=== PATIENT | female | born 1960 | race Caucasian/White ===

== ENCOUNTER 2023-09-17 17:35 | Inpatient (IN) | payer MEDICARE, SELFPAY ==
[2023-09-17] VITALS (8 sets, daily range): BP systolic 106–153; BP diastolic 34–107; PULSE 83–110; RESP 16–26; TEMP 36.3–37.4; O2SAT 91–100; BMI 36.4; BMI 32.6
--- NOTE | 2023-09-17 18:02 | EX.ED.DYSGE1 ---
HPI History of Present Illness Chief Complaint: Abscess Narrative Narrative: 62-year-old female presenting with cellulitis of the left foot. 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 She states that she does see her wound care doctor and recently saw him but not since this is worsened. She notes that the skin is broken down more on the bottom of her foot and the lateral aspect of her foot and her foot is more edematous, erythematous, warm. Her has been doing dressing changes. No systemic signs or symptoms. No fevers or chills. Patient admits to history of diabetes, hypertension, hyperlipidemia, peripheral neuropathy. [facility] Medical History Diabetes Hypercholesteremia Hypertension Neuropathy Home Medications aspirin 81 mg tablet,delayed release 81 mg PO DAILY HEART HEALTH 09/17/23 [History Last Taken 09/16/23] atorvastatin 40 mg tablet 40 mg PO DAILY CHOLESTEROL 09/17/23 [History Last Taken 09/16/23] bupropion HCl 150 mg 24 hr tablet, extended release 150 mg PO DAILY DEPRESSION 09/17/23 [History Last Taken 09/16/23] fluticasone propionate 110 mcg/actuation HFA aerosol inhaler 1 puff inhalation BID ASTHMA 09/17/23 [History Last Taken 09/16/23] gabapentin 600 mg tablet 600 mg PO BID NEUROPATHY 09/17/23 [History Last Taken 09/16/23] losartan 100 mg tablet 100 mg PO DAILY BLOOD PRESSURE 09/17/23 [History Last Taken 09/16/23] metformin 500 mg tablet,extended release 24 hr 500 mg PO BIDCM DIABETES 09/17/23 [History Last Taken 09/16/23] metoprolol tartrate 75 mg tablet 75 mg PO BID BLOOD PRESSURE 09/17/23 [History Last Taken 09/16/23] oxybutynin chloride 5 mg tablet 5 mg PO DAILY OVERACTIVE BLADDER 09/17/23 [History Last Taken 09/16/23] venlafaxine 75 mg tablet 75 mg PO BREAKFAST DEPRESSION 09/17/23 [History Last Taken 09/16/23] venlafaxine 75 mg tablet 150 mg PO QPM DEPRESSION 09/17/23 [History Last Taken 09/16/23] Allergy/AdvReac Type Severity Reaction Status Date / Time No Known Allergies Allergy Verified 09/17/23 17:38 Social History Smoking Status: Current every day smoker tobacco type: cigarettes ROS ROS ED Constitutional Constitutional ED: Denies chills, fever(s) or sweats Eyes Eyes: Denies blurry vision or change in vision ENT ENT ED: Denies ear pain or sore throat Cardiovascular Cardiovascular: Denies chest pain, palpitations or racing heartbeat Respiratory/Chest Respiratory/Chest: Denies cough, dyspnea or sputum Gastrointestinal Gastrointestinal: Denies abdominal pain, constipation, diarrhea, nausea or vomiting Genitourinary Genitourinary ED: Denies dysuria, hematuria or urinary frequency Musculoskeletal Musculoskeletal: Denies arthralgias, myalgias or neck pain Integumentary Reports abscess, Abrasions and rash Neurologic Neurologic: Denies headache(s), paresthesias or weakness Psychiatric Psychiatric: Denies anxiety, depression, suicidal ideation or suicidal thoughts Endocrine Endocrinology: Denies polydipsia or polyuria EXAM Physical Exam Const Vital Signs: 09/17/23 17:36 09/17/23 17:57 09/17/23 18:56 Temperature 97.4 F L 98.6 F 98.7 F Temperature Source Temporal Oral Oral Pulse Rate 110 H 100 96 Respiratory Rate 20 H 22 H 19 H Blood Pressure 153/61 H 129/59 H 120/107 H Blood Pressure Mean 91 82 111 Pulse Ox 100 96 91 Oxygen Delivery Method Room Air Room Air Room Air 09/17/23 19:10 Temperature 99.4 F H Temperature Source Oral Pulse Rate 95 Respiratory Rate 26 H Blood Pressure 133/64 H Blood Pressure Mean 87 Pulse Ox 94 Oxygen Delivery Method Room Air Positive well nourished General Appearance ED: NAD HEENT Reports moist mucous membranes Resp normal respiratory effort and clear to auscultation bilaterally Cardio regular rate and regular rhythm GI normal to inspection, nondistended, normoactive bowel sounds Neuro oriented x3 and CN's II-XII intact bilaterally Psych mental status grossly normal Skin Skin Narrative: Left foot shows diffuse edema and erythema of the forefoot. There is a large area of ulceration on the lateral aspect of the left foot which shows necrosis and a serrated tissue with drainage and foul odor. There is also an ulceration on the plantar aspect of the foot which shows similar necrosis and foul odor with drainage. MDM MDM MDM Narrative Medical decision making narrative: Patient presents with diabetic foot ulcer which shows necrosis and cellulitis surrounding. Initially CBC and BMP were obtained as well as ESR and CRP as well as foot x-ray. CBC showed a leukocytosis of 15.8. Hemoglobin 11.3. Platelets are 269. Creatinine is 1.33 with GFR 43 with no comparison. CRP is elevated 135 and ESR is 130. Given the patient has a chronic diabetic foot ulcer and elevated blood cell count with some mild tachycardia I did add a lactic acid, coagulation studies and blood cultures. Vancomycin and Zosyn were started. Patient given 2 L of IV fluids. I spoke with Dr. Hager who came to evaluate the patient and feel she is to need an amputation of her foot. Wound cultures were sent prior to antibiotics starting. INR returned at 1.3. Lactic acid slightly elevated at 2.3. Foot x-ray on my interpretation shows foreign body in the subcu tissue on the plantar surface of the foot and subcu emphysema. Discussed with hospitalist for admission. Impression: 1. Cellulitis left foot 2. Diabetic foot ulcer 3. History of diabetic neuropathy. 4. Hypokalemia Lab Data Attestation: I reviewed the patient's lab results. Labs: Laboratory Results - last 24 hr 09/17/23 09/17/23 18:25 19:16 WBC 15.8 H RBC 4.30 Hgb 11.3 L Hct 35.3 L MCV 82.1 MCH 26.3 L MCHC 32.0 RDW Std Deviation 53.8 H RDW Coeff of [place] 18.1 H Plt Count 269 MPV 9.8 Immature Gran % (Auto) 1.800 H Neut % (Auto) 83.7 H Lymph % (Auto) 9.9 L [place] % (Auto) 4.1 Eos % (Auto) 0.2 Baso % (Auto) 0.3 Absolute Neuts (auto) 13.2 H Absolute Lymphs (auto) 1.56 Nucleated RBC % 0 ESR > 130 H PT 15.9 H INR 1.3 Sodium 133 L Potassium 3.0 L Chloride 102 Carbon Dioxide 21.0 Anion Gap 10 BUN 23 H Creatinine 1.33 H Estim Creat Clear Calc 38.96 Est GFR (MDRD) Af Amer 52 L Est GFR (MDRD) Non-Af 43 L BUN/Creatinine Ratio 17.3 Glucose 232 H Lactic Acid 2.3 H* Calcium 8.7 C-React Prot Ext Range 135.00 H Radiography Diagnostic Testing: Clinical Impression(s) from Imaging Studies Foot X-Ray 09/17/23 19:32 IMPRESSION: Soft tissue swelling with subcutaneous emphysema. There is a plantar wound. Curvilinear foreign bodies as noted. Electronically Signed: Serafin Hernandez DO at 20:22 EST Reading Location ID and State: [facility] / [place] Tel [phone], Service support , Discharge Plan Triage Chief Complaint: Abscess ED Provider: Chucho Romero Dx/Rx/DC Orders Primary Care Provider: Care Physician,No Primary
[2023-09-17 18:47] LABS: Absolute Lymphocyte Count 1.56 X10^3/uL (0.83-4.51); Absolute Neutrophil Count 13.2 X10^3/uL (2.0-7.7); Basophil# 0.05 X10^3/uL; Basophil% 0.3 % (0-1); Eosinophil# 0.03 X10^3/uL; Eosinophils% 0.2 % (0-5); Hematocrit 35.3 % (37-47); Hemoglobin 11.3 g/dL (12.0-15.0); Lymphocyte # 1.56 X10^3/ul (0.83-4.51); Lymphocyte % 9.9 % (19-41); Mean Corpuscular Hgb 26.3 pg (27.0-32.0); Mean Corpuscular Volume 82.1 fL (81-99); Mean Platelet Vol. 9.8 fl (6.2-12.0); Monocyte# 0.65 X10^3/uL; Monocyte% 4.1 % (0-10); NRBC Flagged by Analyzer 0 % (0-5); Neutrophil # 13.21 X10^3/uL (2.7-7.7); Neutrophil % 83.7 % (47-70); Platelet Count 269 K/mm3 (150-450); RBC Distribution Width CV 18.1 % (11.6-14.6); RBC Distribution Width SD 53.8 fl (35.1-43.9); White Blood Count 15.8 K/mm3 (4.4-11.0)
--- NOTE | 2023-09-17 18:50 | CON.PCM_ITS ---
Assessment & Plan Assessment/Plan (1) Diabetes mellitus with diabetic polyneuropathy: (2) Cellulitis of left foot: (3) Abscess of left foot: (4) Non-pressure chronic ulcer of other part of left foot with necrosis of bone: PLAN: Plan Patient seen and evaluated Infection: There is erythema of the dorsal forefoot, especially laterally extending proximal to the ankle joint. There is purplish discoloration of the fifth digit and base of the fourth digit with digits cold to palpation. There is a noted ulceration to the plantar aspect of the first metatarsal head, lateral fifth metatarsal, and plantar midfoot extending to the level of the navicular bone. Lateral ulceration demonstrates periwound maceration with necrotic eschar and purulent drainage with foul odor. This ulceration communicates along the plantar aspect of the foot to the plantar ulceration. Lateral and plantar ulceration probe directly to bone. Plantar foot demonstrates erythema extending proximally to the heel. Plantar ulceration demonstrates periwound maceration with significant tissue destruction/necrotic tissue with foul-smelling dark and purulent drainage. WBC 15.8 with left shift, CRP 135, ESR > 130, sodium 133, BUN 23, creatinine 1.33, glucose 232, PT 15.9 Patient currently on IV Vanco/Zosyn Imaging: Radiograph obtained of the left foot demonstrating diffuse swelling of the foot with soft tissue defect consistent with plantar wound to the first metatarsal head, soft tissue defect lateral to the fifth metatarsal communicating plantarly below fourth, third, second metatarsal extending proximally to the level of the navicular with soft tissue emphysema noted about the lateral fifth metatarsal extending medially to the fourth metatarsal. There is evidence of foreign body noted to the left foot plantar to the fourth and fifth metatarsal shafts appear to be consistent with metal wire. Recommending MRI for further assessment for likely osteomyelitis I did discuss with her university administrator Emily VillavicencioPSylvia. who states he had been patient for wound care and was close to healing her plantar first metatarsal ulceration however patient was lost to follow-up prior to final resolution of healing. He did state multiple attempts to contact patient for return to wound care however patient did not return stating she had healed. I discussed with patient the nature of her infection and high probability of underlying osteomyelitis. I discussed transmetatarsal versus Lisfranc amputation however I did discuss with patient the extent of tissue damage to the plantar foot in addition to depth of her ulcerative sites complicates sufficient skin coverage for flap closure and despite surgical intervention would likely leave behind exposed bone with inability for VAC closure. I discussed with patient that she is likely to undergo a below the knee amputation of the left lower extremity. Patient voices understanding of this. Medicine team currently following for medical management, they are greatly appreciated. Wound care nurse assisting in dressing changes, her assistance is appreciated. Vascular surgery to be consulted for possible BKA of left lower extremity Podiatry will continue to follow while in house. Doug Hager Jr. D.P.M. [facility] [phone] HPI Consult Data Date of Consult: 09/18/23 HPI Narrative Reason for Consultation: Left foot infection HPI Narrative: MARY BETH CARDONA, is a 62 F who presents to [facility] ED with left foot infection. She has PMHx of diabetes type 2 with peripheral polyneuropathy, HTN, HLD, obesity. Patient states that she had been following with Dr. Danis D.P.M. in [place] for wound care but has not seen him for a few days. Patient states the reason she had not seen him was because she was prior healed however she did breakdown ulcer sites to the plantar first metatarsal head, plantar midfoot, and lateral fifth metatarsal. Patient states she was just performing dressing changes with gauze daily however drainage was more progressive with more redness spreading with further development of foul odor over the last week. She reports she has not seen a foot doctor for regular checkups other than her wound care university administrator. She denies outpatient oral antibiotic use. She denies F/V/N/chills. She states she has presented to the ER to receive IV antibiotics for her left foot infection. She did receive Vanco/Zosyn while in ED. She was consulted to podiatry for left foot infection with multiple ulcerations and suspected osteomyelitis. PFSH Medical History Cancer COPD (chronic obstructive pulmonary disease) CPAP (continuous positive airway pressure) dependence Depression Diabetes History of stress test Hoarseness Hypercholesteremia Hypertension Hypothyroidism Migraines Neuropathy Post-menopausal Restless legs Sleep apnea Smoker Home Medications albuterol sulfate 90 mcg/actuation aerosol inhaler 2 puff inhalation Q4H PRN WHEEZING/SOB 09/17/23 [History Last Taken Unknown] aspirin 81 mg tablet,delayed release 81 mg PO DAILY HEART HEALTH 09/17/23 [History Last Taken 09/16/23] atorvastatin 40 mg tablet 40 mg PO DAILY CHOLESTEROL 09/17/23 [History Last Taken 09/16/23] bupropion HCl 150 mg 24 hr tablet, extended release 150 mg PO DAILY DEPRESSION 09/17/23 [History Last Taken 09/16/23] fluticasone propionate 110 mcg/actuation HFA aerosol inhaler 1 puff inhalation BID ASTHMA 09/17/23 [History Last Taken 09/16/23] gabapentin 600 mg tablet 600 mg PO BID NEUROPATHY 09/17/23 [History Last Taken 09/16/23] levothyroxine 50 mcg tablet (Synthroid) 50 mcg PO DAILY THYROID 09/17/23 [History Last Taken Unknown] losartan 100 mg tablet 100 mg PO DAILY BLOOD PRESSURE 09/17/23 [History Last Taken 09/16/23] metformin 500 mg tablet,extended release 24 hr 500 mg PO BIDCM DIABETES 09/17/23 [History Last Taken 09/16/23] metoprolol tartrate 75 mg tablet 75 mg PO BID BLOOD PRESSURE 09/17/23 [History Last Taken 09/16/23] oxybutynin chloride 5 mg tablet 5 mg PO DAILY OVERACTIVE BLADDER 09/17/23 [History Last Taken 09/16/23] venlafaxine 75 mg tablet 75 mg PO BREAKFAST DEPRESSION 09/17/23 [History Last Taken 09/16/23] venlafaxine 75 mg tablet 150 mg PO QPM DEPRESSION 09/17/23 [History Last Taken 09/16/23] Allergy/AdvReac Type Severity Reaction Status Date / Time No Known Allergies Allergy Verified 09/17/23 17:38 Social History Smoking Status: Current every day smoker tobacco type: cigarettes ROS Constitutional Constitutional: Denies chills, fatigue, fever(s) or weakness Eyes Eyes: Denies diplopia, erythema or eye pain ENT HEENT: Denies dysphagia, nasal congestion, nasal discharge or sore throat Cardiovascular Cardiovascular: Denies chest pain, claudication or palpitations Respiratory/Chest Respiratory/Chest: Denies cough, dyspnea or shortness of breath at rest Gastrointestinal Gastrointestinal: Denies abdominal pain, constipation, diarrhea, hematochezia, nausea or vomiting Genitourinary Genitourinary: Denies dysuria, urinary frequency, urinary hesitancy, urinary incontinence or urinary urgency Musculoskeletal Musculoskeletal: Denies joint pain, joint stiffness or joint swelling Integumentary Integumentary: Denies lesions, pruritus or rash Neurologic Neurologic: Denies dizziness, numbness or seizures Psychiatric Psychiatric: Denies anxiety Endocrine Endocrinology: Denies cold intolerance, heat intolerance or polydipsia Hematologic/Lymphatic Hematologic/Lymphatic: Denies easy bleeding or easy bruising Allergic/Immunologic Allergic/Immunologic: Denies wheezing Physical Exam Const alert, oriented x3 and no apparent distress Constitutional Narrative: Nontoxic-appearing. General Appearance: cooperative HEENT normocephalic Eyes General Eye: normal appearance of both eyes Neck General: normal visual inspection Lymph Lymphatic: no lymphadenopathy noted and no lymphedema noted Resp normal respiratory effort Cardio regular rate and regular rhythm Extremity Extremity Narrative: DP and PT pulses weakly palpable to the left lower extremity. There is delayed capillary fill time to digits 1 through 4 of the left foot. Digit 5 demonstrates absence of capillary fill and is cold to palpation. Neuro: Decreased protective sensation to the foot at greater than 2 sites consistent with diabetic peripheral polyneuropathy. Dermatological: There is erythema of the dorsal forefoot, especially laterally extending proximal to the ankle joint. There is purplish discoloration of the fifth digit and base of the fourth digit with digits cold to palpation. There is a noted ulceration to the plantar aspect of the first metatarsal head, lateral fifth metatarsal, and plantar midfoot extending to the level of the navicular bone. Lateral ulceration demonstrates periwound maceration with necrotic eschar and purulent drainage with foul odor. This ulceration communicates along the plantar aspect of the foot to the plantar ulceration. Lateral and plantar ulceration probe directly to bone. Plantar foot demonstrates erythema extending proximally to the heel. Plantar ulceration demonstrates periwound maceration with significant tissue destruction/necrotic tissue with foul-smelling dark and purulent drainage. Musculoskeletal: Muscle strength 5 of 5 age-appropriate. No pain to palpation about left foot ulcerative sites or dorsal foot Consistent with diabetic peripheral polyneuropathy. Skin no rashes or lesions noted and no jaundice Neuro moves all extremities Lab / Micro Data 09/18/23 06:40 09/18/23 06:40 Labs: Laboratory Results - last 24 hr 09/17/23 18:25: WBC 15.8 H, RBC 4.30, Hgb 11.3 L, Hct 35.3 L, MCV 82.1, MCH 26.3 L, MCHC 32.0, RDW Std Deviation 53.8 H, RDW Coeff of [place] 18.1 H, Plt Count 269, MPV 9.8, Immature Gran % (Auto) 1.800 H, Neut % (Auto) 83.7 H, Lymph % (Auto) 9.9 L, [place] % (Auto) 4.1, Eos % (Auto) 0.2, Baso % (Auto) 0.3, Absolute Neuts (auto) 13.2 H, Absolute Lymphs (auto) 1.56, Nucleated RBC % 0
--- NOTE | 2023-09-17 18:54 | ED.RN ---
PER DR. CELESTIN VERBAL ORDER, BLOOD CULTURES NEEDED PRIOR TO STARTING ANTIBIOTICS.
[2023-09-17 18:55] LABS: Anion Gap 10 (5-15); BUN 23 mg/dL (7-18); BUN/Creat Ratio 17.3 RATIO (10-20); Calcium,Total 8.7 mg/dL (8.5-10.1); Chloride 102 mmol/L (98-107); Creatinine, Serum 1.33 mg/dL (0.55-1.02); EST Glomerular Filtration Rate 43 mL/min (>60); Est Glom Filt Rate - Afr Amer 52 mL/min (>60); Estimated Creatinine Clearance 38.96 ml/min; Glucose 232 mg/dL (74-106); Sodium Level 133 mmol/L (136-145)
[2023-09-17 19:02] LABS: Erythrocyte Sedimentation Rate > 130 mm/hr (0-30)
[2023-09-17] MEDS: 0.9% Normal Saline (1000mL) 1,000 ML 1000 ML IV (19:19)
[2023-09-17] MEDS: Piperacil/Tazobactam 3.375 GM in 0.9% Normal Saline (50mL MB+) 50 ML IV (19:24)
[2023-09-17] MEDS: Potassium Chloride Oral Tablet 20 MEQ 40 MEQ PO (19:24)
[2023-09-17] MEDS: 0.9% Normal Saline (1000mL) 1,000 ML 999 ML IV (19:28)
[2023-09-17 19:32] LABS: International Normalized Ratio 1.3; Prothrombin Time (Protime)PT. 15.9 SECONDS (11.7-14.9)
--- NOTE | 2023-09-17 19:32 | RAD_ITS ---
INDICATION: Left foot infection EXAMINATION/TECHNIQUE: X-RAY - LEFT XR Foot 3 VIEWS COMPARISON: FINDINGS: SOFT TISSUES: There is soft tissue swelling and subcutaneous emphysema with a plantar wound. There is a curvilinear radiopaque foreign body within the plantar subcutaneous soft tissues between the fourth and fifth metatarsal bones. In a curvilinear radiopaque foreign body is noted within the plantar soft tissue at the heel. BONES/JOINTS: No acute fracture or subluxation.. Normal alignment. Preservation of the joint space.. No sclerotic or destructive changes observed. RAD/Foot min 3 Views IMPRESSION: Soft tissue swelling with subcutaneous emphysema. There is a plantar wound. Curvilinear foreign bodies as noted. Electronically Signed: Serafin Hernandez DO at 20:22 EST Reading Location ID and State: [facility] / [place] Tel [phone], Service support ,
--- NOTE | 2023-09-17 19:49 | PCM.HP.STD ---
[facility] - General General Date of Admission: 09/17/23 Date of Service: 09/17/23 Chief Complaint: Left foot redness, swelling and discoloration. HPI Narrative MARY BETH DUVALL, is a 62 F with a past medical history of essential hypertension, hyperlipidemia, tobacco abuse, obesity with BMI of 36.4 this admission, depression, ongoing tobacco abuse, positive family history of peripheral vascular disease in her mother who was underwent previous left lower extremity amputation, diabetes mellitus type 2 uncontrolled with hyperglycemia, diabetic polyneuropathy, history of diabetic foot ulcer of the Left foot followed by Dr. Danis Palacio In [place] and history of medical noncompliance who presents to [facility] ER complaining of left foot redness swelling and discoloration. Mrs. Duvall reports her symptoms began approximately 1 week prior to admission with the development of redness swelling and a very foul odor over that time period. She admits she has not seen her certified nurse midwife recently because her previous diabetic foot ulcers at the plantar first metatarsal head plantar midfoot and lateral fifth metatarsal head previously healed. She reports she was doing dressing changes with gauze daily but her symptoms worsened in spite of her 's best efforts trying to care for her. She denies outpatient oral antibiotic use. She also denies fever chills nausea vomiting diarrhea or constipation. In the ER she was diagnosed with cellulitis of the Left foot with abscess formation complicated by a non-pressure chronic ulcer of the left foot with necrosis to the bone and clinical evidence of dry gangrene with foul smelling dark and purulent drainage with leukocytosis of 15.8 present on admission and hypokalemia of 3 mmol/L present on admission. Dr. Hager of the podiatry service evaluated the patient in the ER and plans for left foot amputation in the a.m. with consult greatly appreciated. She was then admitted to the general medical floor for ongoing care for status expected to be greater than 48 hours. PFSH Medical History Cancer COPD (chronic obstructive pulmonary disease) CPAP (continuous positive airway pressure) dependence Depression Diabetes History of stress test Hoarseness Hypercholesteremia Hypertension Hypothyroidism Migraines Neuropathy Post-menopausal Restless legs Sleep apnea Smoker Home Medications albuterol sulfate 90 mcg/actuation aerosol inhaler 2 puff inhalation Q4H PRN WHEEZING/SOB 09/17/23 [History Last Taken Unknown] aspirin 81 mg tablet,delayed release 81 mg PO DAILY HEART HEALTH 09/17/23 [History Last Taken 09/16/23] atorvastatin 40 mg tablet 40 mg PO DAILY CHOLESTEROL 09/17/23 [History Last Taken 09/16/23] bupropion HCl 150 mg 24 hr tablet, extended release 150 mg PO DAILY DEPRESSION 09/17/23 [History Last Taken 09/16/23] fluticasone propionate 110 mcg/actuation HFA aerosol inhaler 1 puff inhalation BID ASTHMA 09/17/23 [History Last Taken 09/16/23] gabapentin 600 mg tablet 600 mg PO BID NEUROPATHY 09/17/23 [History Last Taken 09/16/23] levothyroxine 50 mcg tablet (Synthroid) 50 mcg PO DAILY THYROID 09/17/23 [History Last Taken Unknown] losartan 100 mg tablet 100 mg PO DAILY BLOOD PRESSURE 09/17/23 [History Last Taken 09/16/23] metformin 500 mg tablet,extended release 24 hr 500 mg PO BIDCM DIABETES 09/17/23 [History Last Taken 09/16/23] metoprolol tartrate 75 mg tablet 75 mg PO BID BLOOD PRESSURE 09/17/23 [History Last Taken 09/16/23] oxybutynin chloride 5 mg tablet 5 mg PO DAILY OVERACTIVE BLADDER 09/17/23 [History Last Taken 09/16/23] venlafaxine 75 mg tablet 75 mg PO BREAKFAST DEPRESSION 09/17/23 [History Last Taken 09/16/23] venlafaxine 75 mg tablet 150 mg PO QPM DEPRESSION 09/17/23 [History Last Taken 09/16/23] Allergy/AdvReac Type Severity Reaction Status Date / Time No Known Allergies Allergy Verified 09/17/23 17:38 Social History Smoking Status: Current every day smoker tobacco type: cigarettes ROS ROS Narrative Constitution: Patient appears to be her stated age with a flat, depressed affect. Review of Systems ROS Unobtainable: due to encephalopathy Vital Signs Vital Signs Vital Signs: 09/17/23 17:36 09/17/23 17:57 09/17/23 18:56 Temperature 97.4 F L 98.6 F 98.7 F Temperature Source Temporal Oral Oral Pulse Rate 110 H 100 96 Respiratory Rate 20 H 22 H 19 H Blood Pressure 153/61 H 129/59 H 120/107 H Blood Pressure Mean 91 82 111 Pulse Ox 100 96 91 Oxygen Delivery Method Room Air Room Air Room Air 09/17/23 19:10 Temperature 99.4 F H Temperature Source Oral Pulse Rate 95 Respiratory Rate 26 H Blood Pressure 133/64 H Blood Pressure Mean 87 Pulse Ox 94 Oxygen Delivery Method Room Air Weight Weight: 218 lb 14.704 oz Body Mass Index (BMI) 36.4 Physical Exam Narrative Patient appears her stated age with a flat, depressed affect. Const alert, oriented x3 and no apparent distress General Appearance: cooperative HEENT normocephalic, head/scalp atraumatic, hearing grossly normal bilaterally and moist oral mucous membranes Eyes PERRL, EOMs intact bilaterally and conjunctivae normal Neck no lymphadenopathy Resp normal respiratory effort, no retractions and no use of accessory muscles Cardio regular rate, regular rhythm, S1 normal heart sound and S2 normal heart sound GI normal to inspection, nondistended, normoactive bowel sounds, soft to palpation, non-tender and non-distended Extremity Extremity Narrative: Patient's left foot is edematous and erythematous with approximately 4 cm black eschar over the plantar aspect of her Left midfoot with surrounding abscess and cellulitis. Patient is neuropathic with little pain sensation. The drainage from her foot is dark and extremely foul-smelling. Skin Skin Narrative: Patient's left foot is edematous and erythematous with approximately 4 cm black eschar over the plantar aspect of her Left midfoot with surrounding abscess and cellulitis. The drainage from her foot is dark and extremely foul-smelling. Neuro oriented x3, CN's II-XII intact bilaterally, moves all extremities and no focal motor deficits Sensorium / Orientation: awake, alert, oriented to person, oriented to place and oriented to time Speech: speech normal Psych Psych Narrative: Patient has a flat, depressed affect. Mood & Affect: depressed Results Medical Records Data Attestation: I reviewed the patient's medical records Lab / Micro Data Attestation: I reviewed the patient's lab results. 09/18/23 06:40 09/17/23 18:25 Labs: Laboratory Results - last 24 hr 09/17/23 18:25: WBC 15.8 H, RBC 4.30, Hgb 11.3 L, Hct 35.3 L, MCV 82.1, MCH 26.3 L, MCHC 32.0, RDW Std Deviation 53.8 H, RDW Coeff of Cony 18.1 H, Plt Count 269, MPV 9.8, Immature Gran % (Auto) 1.800 H, Neut % (Auto) 83.7 H, Lymph % (Auto) 9.9 L, [place] % (Auto) 4.1, Eos % (Auto) 0.2, Baso % (Auto) 0.3, Absolute Neuts (auto) 13.2 H, Absolute Lymphs (auto) 1.56, Nucleated RBC % 0, ESR > 130 H, Sodium 133 L, Potassium 3.0 L, Chloride 102, Carbon Dioxide 21.0, Anion Gap 10, BUN 23 H, Creatinine 1.33 H, Estim Creat Clear Calc 38.96, Est GFR (MDRD) Af Amer 52 L, Est GFR (MDRD) Non-Af 43 L, BUN/Creatinine Ratio 17.3, Glucose 232 H, Calcium 8.7, C-React Prot Ext Range 135.00 H 09/17/23 19:16: PT 15.9 H, INR 1.3 Assessment & Plan Assessment/Plan (1) Non-pressure chronic ulcer of other part of left foot with necrosis of bone: (2) Abscess of left foot: (3) Cellulitis of left foot: (4) Diabetes mellitus with diabetic polyneuropathy: PLAN: Plan 1. Severe diabetic foot ulcer of the Left foot with surrounding cellulitis and non-pressure ulcer of the left foot with necrosis to the bone with clinical evidence of dry gangrene and a suspected foreign body at the base of her fifth metatarsal - Admit to general medical floor. Continue IV Zosyn and IV vancomycin for broad-spectrum coverage of nosocomial pathogens begun in the ER. Give Tylenol as needed for fever or pain. Finally, Dr. Hager's podiatry consultation is greatly appreciated with consultations also pending for infectious disease and vascular surgery in anticipation of the impending left below the knee amputation. 2. Diabetes mellitus type 2 uncontrolled with hyperglycemia, diabetic polyneuropathy and medical noncompliance precipitating #1 - ADA diet after surgery. FSBS q. AC HS plus SSI. Check HgbA1c. 3. Ongoing tobacco abuse adding to the pathology of #1 and #2 - Tobacco cessation will be strongly encouraged with nicotine patch offered to control cravings. 4. Positive family history of peripheral vascular disease in her mother who underwent a left lower extremity amputation as well - Noted. 5. Essential hypertension - Continue home medications as previous. Give IV hydralazine as needed for systolic blood pressure greater than 160 mmHg. 6. Hyperlipidemia - Continue statin as previous. 7. DVT prophylaxis -Lovenox 40 mg subcu daily. Total time: Proximately 55 minutes. Charges/Coding Visit Charges Inpatient E&M: 73409 Init Hosp L2
[2023-09-17 20:09] LABS: Lactic Acid 2.3 mmol/L (0.4-1.9)
[2023-09-17] MEDS: Vancomycin HCl 1,500 MG in 0.9% Normal Saline (500mL Bag) 500 ML 250 MG IV (20:39)
[2023-09-17] MEDS: Morphine 4 MG/ML Syringe IV (20:46)
[2023-09-17] MEDS: Gabapentin 600 MG Tablet PO (22:36)
[2023-09-17] MEDS: Metoprolol Tartrate 25 MG Tablet 75 MG PO (22:36)
[2023-09-17] MEDS: Atorvastatin Calcium 40 MG Tablet PO (22:37)
[2023-09-17] MEDS: Glucerna Shake 120 ML LIQUID PO (22:41)
[2023-09-17] MEDS: Venlafaxine HCl 75 MG Tablet 150 MG PO (23:17)
[2023-09-17 23:21] LABS: Reflex Lactate? Y
--- NOTE | 2023-09-17 23:54 | PCM.RX.CS ---
Consult Antibiotic Management Pharmacy has been consulted to manage selected antiobiotic: Vancomycin Type of Intervention Type of Consult: New start Labs Labs: Sodium 133 mmol/L (136-145) L 09/17/23 18:25 Potassium 3.0 mmol/L (3.5-5.1) L 09/17/23 18:25 Chloride 102 mmol/L (98-107) 09/17/23 18:25 Carbon Dioxide 21.0 mmol/L (21.0-32.0) 09/17/23 18:25 Anion Gap 10 (5-15) 09/17/23 18:25 BUN 23 mg/dL (7-18) H 09/17/23 18:25 Creatinine 1.33 mg/dL (0.55-1.02) H 09/17/23 18:25 Est GFR (MDRD) Af Amer 52 mL/min (>60) L 09/17/23 18:25 Est GFR (MDRD) Non-Af 43 mL/min (>60) L 09/17/23 18:25 BUN/Creatinine Ratio 17.3 RATIO (10-20) 09/17/23 18:25 Glucose 232 mg/dL (74-106) H 09/17/23 18:25 Dosing Weight Weight used for dosin.8 kg Estimated Creatinine Clearance Estimated Creatinine Clearance: 67 Goal Trough Goal Trough: 15-20 mcg/mL Pharmacy Plan for Drug Dosing Pharmacy Plan for Drug Dosing: Pharmacy Service will continue to monitor and adjust dosing as required. Follow-Up Labs Follow-Up Labs: Trough: Vancomycin Date/Time Labs Ordered Labs to be done on [date and time ordered]: 09/19 @ 0800
[2023-09-18] VITALS (15 sets, daily range): BP systolic 103–143; BP diastolic 42–60; PULSE 72–82; RESP 16–24; TEMP 36.1–37.1; O2SAT 90–96; BMI 32.6
[2023-09-18 00:32] LABS: Lactic Acid 1.3 mmol/L (0.4-1.9)
--- NOTE | 2023-09-18 05:00 | EKG12_ITS ---
Test Reason : PRE-OP Blood Pressure : / mmHG Vent. Rate : 072 BPM Atrial Rate : 072 BPM P-R Int : 136 ms QRS Dur : 082 ms QT Int : 398 ms P-R-T Axes : 060 039 -18 degrees QTc Int : 435 ms Normal sinus rhythm Normal ECG No previous ECGs available Confirmed by LINDA MARTÍNEZ, NANCY ([id number]), newspaper editor managing WALESKA HARTMAN ([id number]) on 09/23/2023 11:05:51 AM Referred By: [place] Confirmed By:JOYCELYN MCKEON MD
[2023-09-18] MEDS: Piperacil/Tazobactam 3.375 GM in 0.9% Normal Saline (50mL MB+) 50 ML IV ×3 (05:28→22:24)
[2023-09-18 06:34] LABS: Bedside Glucose 114 mg/dL (74-106)
[2023-09-18] MEDS: Budesonide Respules 0.5 MG/2 ML AMPUL.NEB. INHALATION ×2 (07:01→19:35)
[2023-09-18 07:19] LABS: Absolute Lymphocyte Count 1.84 X10^3/uL (0.83-4.51); Absolute Neutrophil Count 10.9 X10^3/uL (2.0-7.7); Basophil# 0.04 X10^3/uL; Basophil% 0.3 % (0-1); Eosinophil# 0.08 X10^3/uL; Eosinophils% 0.6 % (0-5); Hematocrit 34.2 % (37-47); Hemoglobin 10.5 g/dL (12.0-15.0); Lymphocyte # 1.84 X10^3/ul (0.83-4.51); Lymphocyte % 13.5 % (19-41); Mean Corp Hgb Conc 30.7 g/dL (32-36); Mean Corpuscular Hgb 25.9 pg (27.0-32.0); Mean Corpuscular Volume 84.4 fL (81-99); Monocyte# 0.57 X10^3/uL; Monocyte% 4.2 % (0-10); NRBC Flagged by Analyzer 0 % (0-5); Neutrophil # 10.87 X10^3/uL (2.7-7.7); Neutrophil % 79.8 % (47-70); Platelet Count 274 K/mm3 (150-450); RBC Distribution Width CV 18.2 % (11.6-14.6); Red Blood Count 4.05 M/mm3 (4.2-5.4); White Blood Count 13.6 K/mm3 (4.4-11.0)
--- NOTE | 2023-09-18 07:27 | PN.HOSP_ITS ---
Subjective Subjective No new events. Had been informed about need for BKA. Objective Data Objective Data Vital Signs: Vital Signs Temp Pulse Resp BP Pulse Ox O2 Del Method 36.7 C 75 16 107/50 L 94 Room Air 09/18/23 04:00 09/18/23 07:05 09/18/23 07:05 09/18/23 04:00 09/18/23 04:00 09/18/23 04:00 Oxygen Delivery Method Room Air Weight: 98.8 kg Body Mass Index (BMI) 32.6 Intake & Output: Intake and Output for Last 24 Hours 09/16/23 09/17/23 09/18/23 23:59 23:59 23:59 Intake Total 2580 / 2580 Balance 2580 / 2580 Lab / Micro Data 09/18/23 06:40 09/18/23 06:40 Labs: Laboratory Results - last 24 hr 09/17/23 18:25: WBC 15.8 H, RBC 4.30, Hgb 11.3 L, Hct 35.3 L, MCV 82.1, MCH 26.3 L, MCHC 32.0, RDW Std Deviation 53.8 H, RDW Coeff of Cony 18.1 H, Plt Count 269, MPV 9.8, Immature Gran % (Auto) 1.800 H, Neut % (Auto) 83.7 H, Lymph % (Auto) 9.9 L, [place] % (Auto) 4.1, Eos % (Auto) 0.2, Baso % (Auto) 0.3, Absolute Neuts (auto) 13.2 H, Absolute Lymphs (auto) 1.56, Nucleated RBC % 0, ESR > 130 H, Sodium 133 L, Potassium 3.0 L, Chloride 102, Carbon Dioxide 21.0, Anion Gap 10, BUN 23 H, Creatinine 1.33 H, Estim Creat Clear Calc 38.96, Est GFR (MDRD) Af Amer 52 L, Est GFR (MDRD) Non-Af 43 L, BUN/Creatinine Ratio 17.3, Glucose 232 H, Calcium 8.7, C-React Prot Ext Range 135.00 H 09/17/23 19:16: PT 15.9 H, INR 1.3, Lactic Acid 2.3 H* 09/17/23 23:59: Lactic Acid 1.3 09/18/23 06:12: POC Glucose 114 H 09/18/23 06:40: WBC 13.6 H, RBC 4.05 L, Hgb 10.5 L, Hct 34.2 L, MCV 84.4, MCH 25.9 L, MCHC 30.7 L, RDW Std Deviation 56.0 H, RDW Coeff of Cony 18.2 H, Plt Count 274, MPV 10.0, Immature Gran % (Auto) 1.600 H, Neut % (Auto) 79.8 H, Lymph % (Auto) 13.5 L, [place] % (Auto) 4.2, Eos % (Auto) 0.6, Baso % (Auto) 0.3, Absolute Neuts (auto) 10.9 H, Absolute Lymphs (auto) 1.84, Nucleated RBC % 0 Radiography Diagnostic Testing: Radiology Impression Foot X-Ray 09/17/23 19:32 IMPRESSION: Soft tissue swelling with subcutaneous emphysema. There is a plantar wound. Curvilinear foreign bodies as noted. Electronically Signed: Serafin Hernandez DO at 20:22 EST Reading Location ID and State: [facility] / [place] Tel [phone], Service support , Physical Exam Const alert and no apparent distress HEENT head/scalp atraumatic and moist oral mucous membranes Resp normal respiratory effort, no retractions, no use of accessory muscles and clear to auscultation bilaterally Cardio regular rate, regular rhythm, S1 normal heart sound and S2 normal heart sound GI normal to inspection, nondistended, normoactive bowel sounds, soft to palpation, non-tender and non-distended Extremity normal to inspection Extremity Narrative: left foot wrapped. malodorous. Assessment & Plan Assessment/Plan (1) Non-pressure chronic ulcer of other part of left foot with necrosis of bone: PLAN: Severe diabetic foot wound with SQ emphysema. Ulceration from head of 1st MTP, lateral 5th metatarsal and plantar midfoot to the level of the navicular bone. Plantar tissue profoundly compromised. Not amenable to partial amputation given high risk for failure, therefore BKA is planned. ESR >130, CRP 135. MRI ordered. Check JADE Consults to podiatry, ID and vascular surgery. Abx with vancomycin and pip/tazo. Plan for left BKA today. (2) Diabetes mellitus with diabetic polyneuropathy: PLAN: uncontrolled a1c pending Currently on SSI PLAN: Plan Chronic conditions: * Ongoing tobacco abuse adding to the pathology of #1 and #2 - Tobacco cessation will be strongly encouraged with nicotine patch offered to control cravings. * Positive family history of peripheral vascular disease in her mother who underwent a left lower extremity amputation as well - Noted. * Essential hypertension - Continue home medications as previous. Give IV hydralazine as needed for systolic blood pressure greater than 160 mmHg. * Hyperlipidemia - Continue statin as previous. DVT prophylaxis -Lovenox 40 mg subcu daily. Disposition: TBD. Patient may require SNF post-operatively. DW patient's at bedside. Charges/Coding Visit Charges Inpatient E&M: 43075 Subs Hosp L2
[2023-09-18 07:48] LABS: Anion Gap 4 (5-15); BUN 19 mg/dL (7-18); BUN/Creat Ratio 18.6 RATIO (10-20); Calcium,Total 8.2 mg/dL (8.5-10.1); Chloride 111 mmol/L (98-107); Creatinine, Serum 1.02 mg/dL (0.55-1.02); EST Glomerular Filtration Rate 58 mL/min (>60); Est Glom Filt Rate - Afr Amer 70 mL/min (>60); Estimated Creatinine Clearance 56.95 ml/min; Glucose 115 mg/dL (74-106); Potassium 3.3 mmol/L (3.5-5.1); Sodium Level 136 mmol/L (136-145); Thyroid Stim Hormone (TSH) 2.05 uIU/mL (0.358-3.74)
--- NOTE | 2023-09-18 08:04 | PCM.PROGNOTE ---
Subjective Subjective Patient seen resting in bed early this a.m. She denies pain to the left foot. Patient understands that she is likely to require a below the knee amputation per our discussion last night. Denies constitutional symptoms. Denies further complaints. Objective Data Objective Data Vital Signs: Vital Signs Temp Pulse Resp BP Pulse Ox O2 Del Method 98.1 F 75 16 107/50 L 94 Room Air 09/18/23 04:00 09/18/23 07:05 09/18/23 07:05 09/18/23 04:00 09/18/23 04:00 09/18/23 04:00 Oxygen Delivery Method Room Air Weight: 98.8 kg Body Mass Index (BMI) 32.6 Intake & Output: Intake and Output for Last 24 Hours 09/16/23 09/17/23 09/18/23 23:59 23:59 23:59 Intake Total 2580 / 2580 Balance 2580 / 2580 Lab / Micro Data 09/18/23 06:40 09/18/23 06:40 Labs: Laboratory Results - last 24 hr 09/17/23 18:25: WBC 15.8 H, RBC 4.30, Hgb 11.3 L, Hct 35.3 L, MCV 82.1, MCH 26.3 L, MCHC 32.0, RDW Std Deviation 53.8 H, RDW Coeff of Cony 18.1 H, Plt Count 269, MPV 9.8, Immature Gran % (Auto) 1.800 H, Neut % (Auto) 83.7 H, Lymph % (Auto) 9.9 L, [place] % (Auto) 4.1, Eos % (Auto) 0.2, Baso % (Auto) 0.3, Absolute Neuts (auto) 13.2 H, Absolute Lymphs (auto) 1.56, Nucleated RBC % 0, ESR > 130 H, Sodium 133 L, Potassium 3.0 L, Chloride 102, Carbon Dioxide 21.0, Anion Gap 10, BUN 23 H, Creatinine 1.33 H, Estim Creat Clear Calc 38.96, Est GFR (MDRD) Af Amer 52 L, Est GFR (MDRD) Non-Af 43 L, BUN/Creatinine Ratio 17.3, Glucose 232 H, Calcium 8.7, C-React Prot Ext Range 135.00 H 09/17/23 19:16: PT 15.9 H, INR 1.3, Lactic Acid 2.3 H* 09/17/23 23:59: Lactic Acid 1.3 09/18/23 06:12: POC Glucose 114 H 09/18/23 06:40: WBC 13.6 H, RBC 4.05 L, Hgb 10.5 L, Hct 34.2 L, MCV 84.4, MCH 25.9 L, MCHC 30.7 L, RDW Std Deviation 56.0 H, RDW Coeff of Cony 18.2 H, Plt Count 274, MPV 10.0, Immature Gran % (Auto) 1.600 H, Neut % (Auto) 79.8 H, Lymph % (Auto) 13.5 L, [place] % (Auto) 4.2, Eos % (Auto) 0.6, Baso % (Auto) 0.3, Absolute Neuts (auto) 10.9 H, Absolute Lymphs (auto) 1.84, Nucleated RBC % 0, Sodium 136, Potassium 3.3 L, Chloride 111 H, Carbon Dioxide 21.0, Anion Gap 4 L, BUN 19 H, Creatinine 1.02, Estim Creat Clear Calc 56.95, Est GFR (MDRD) Af Amer 70, Est GFR (MDRD) Non-Af 58 L, BUN/Creatinine Ratio 18.6, Glucose 115 H, Calcium 8.2 L, TSH 2.05 Radiography Diagnostic Testing: Radiology Impression Foot X-Ray 09/17/23 19:32 IMPRESSION: Soft tissue swelling with subcutaneous emphysema. There is a plantar wound. Curvilinear foreign bodies as noted. Electronically Signed: Serafin Hernandez DO at 20:22 EST Reading Location ID and State: [facility] / [place] Tel [phone], Service support , Physical Exam Const alert, oriented x3 and no apparent distress Constitutional Narrative: Nontoxic-appearing. General Appearance: cooperative HEENT normocephalic Eyes General Eye: normal appearance of both eyes Neck General: normal visual inspection Lymph Lymphatic: no lymphadenopathy noted and no lymphedema noted Resp normal respiratory effort Cardio regular rate and regular rhythm Extremity Extremity Narrative: DP and PT pulses weakly palpable to the left lower extremity. There is delayed capillary fill time to digits 1 through 4 of the left foot. Digit 5 demonstrates absence of capillary fill and is cold to palpation. Neuro: Decreased protective sensation to the foot at greater than 2 sites consistent with diabetic peripheral polyneuropathy. Dermatological: There is erythema of the dorsal forefoot, especially laterally extending proximal to the ankle joint. There is purplish discoloration of the fifth digit and base of the fourth digit with digits cold to palpation. There is a noted ulceration to the plantar aspect of the first metatarsal head, lateral fifth metatarsal, and plantar midfoot extending to the level of the navicular bone. Lateral ulceration demonstrates periwound maceration with necrotic eschar and purulent drainage with foul odor. This ulceration communicates along the plantar aspect of the foot to the plantar ulceration. Lateral and plantar ulceration probe directly to bone. Plantar foot demonstrates erythema extending proximally to the heel. Plantar ulceration demonstrates periwound maceration with significant tissue destruction/necrotic tissue with foul-smelling dark and purulent drainage. Musculoskeletal: Muscle strength 5 of 5 age-appropriate. No pain to palpation about left foot ulcerative sites or dorsal foot Consistent with diabetic peripheral polyneuropathy. Skin no rashes or lesions noted and no jaundice Neuro moves all extremities Assessment & Plan Assessment/Plan (1) Diabetes mellitus with diabetic polyneuropathy: (2) Cellulitis of left foot: (3) Abscess of left foot: (4) Non-pressure chronic ulcer of other part of left foot with necrosis of bone: PLAN: Plan Patient seen and evaluated Infection: There is erythema of the dorsal forefoot, especially laterally extending proximal to the ankle joint. There is purplish discoloration of the fifth digit and base of the fourth digit with digits cold to palpation. There is a noted ulceration to the plantar aspect of the first metatarsal head, lateral fifth metatarsal, and plantar midfoot extending to the level of the navicular bone. Lateral ulceration demonstrates periwound maceration with necrotic eschar and purulent drainage with foul odor. This ulceration communicates along the plantar aspect of the foot to the plantar ulceration. Lateral and plantar ulceration probe directly to bone. Plantar foot demonstrates erythema extending proximally to the heel. Plantar ulceration demonstrates periwound maceration with significant tissue destruction/necrotic tissue with foul-smelling dark and purulent drainage. Overnight changes noted with worsening to ulcerative sites with more abscess formation and more erythema of the foot and ankle. WBC 13.6 down from 15.8 with left shift, CRP 135, ESR > 130, sodium 133, BUN 23, creatinine 1.33, glucose 115 down from 232, PT 15.9 Patient currently on IV Vanco/Zosyn Imaging: Radiograph obtained of the left foot demonstrating diffuse swelling of the foot with soft tissue defect consistent with plantar wound to the first metatarsal head, soft tissue defect lateral to the fifth metatarsal communicating plantarly below fourth, third, second metatarsal extending proximally to the level of the navicular with soft tissue emphysema noted about the lateral fifth metatarsal extending medially to the fourth metatarsal. There is evidence of foreign body noted to the left foot plantar to the fourth and fifth metatarsal shafts appear to be consistent with metal wire. Recommending MRI for further assessment for likely osteomyelitis I did discuss with her cork insulator helper Stephanie Villavicencio.P.Mitch. who states he had been patient for wound care and was close to healing her plantar first metatarsal ulceration however patient was lost to follow-up prior to final resolution of healing. He did state multiple attempts to contact patient for return to wound care however patient did not return stating she had healed. I discussed with patient the nature of her infection and high probability of underlying osteomyelitis. I discussed transmetatarsal versus Lisfranc amputation however I did discuss with patient the extent of tissue damage to the plantar foot in addition to depth of her ulcerative sites complicates sufficient skin coverage for flap closure and despite surgical intervention would likely leave behind exposed bone with inability for VAC closure. I discussed with patient that she is likely to undergo a below the knee amputation of the left lower extremity. Patient voices understanding of this. Ulcerative sites dressed with Dakin's and wet-to-dry dressing. Medicine team currently following for medical management, they are greatly appreciated. Wound care nurse assisting in dressing changes, her assistance is appreciated. Vascular surgery to be consulted for BKA of left lower extremity Patient has met with vascular surgery and does wish to proceed forward with BKA of the left lower extremity. Surgery anticipated today at 1:30 PM. Podiatry will see patient 1 more time following BKA and will sign off at that time. Doug Hager Jr. D.P.M. [facility] [phone]
[2023-09-18 08:23] LABS: Hemoglobin A1c 6.9 % (3.8-5.6)
--- NOTE | 2023-09-18 08:34 | WOUNDNOTE ---
wound photo: left lateral foot
--- NOTE | 2023-09-18 08:35 | WOUNDNOTE ---
wound photo: left foot
--- NOTE | 2023-09-18 08:50 | ART_ITS ---
Reason For Study: LLE Ulcer Procedure A bilateral lower extremity continuous wave Doppler with analog waveform analysis,segmental pressures,and ankle brachial indexes without exercise. Left Segmental Pressures Left thigh = 106mmHg. Left calf = 76mmHg. Left posterior tibial artery = 79mmHg. Left dorsalis pedis artery = 73mmHg. Left digit = 24 mmHg. The left posterior tibial artery waveforms are biphasic. The left dorsalis pedis waveforms are monophasic. Right Segmental Pressures Right brachial= 113mmHg. Right thigh = 92mmHg. Right calf = 82mmHg. Right posterior tibial artery = 77mmHg. Right dorsalis pedis artery = 74mmHg. Right digit = 52 mmHg. The right posterior tibial artery waveforms are biphasic. The right dorsalis pedis waveforms are biphasic. Indices The right ankle brachial index by the posterior tibial artery is 0.68. The right ankle brachial index by the dorsalis pedis is 0.65. The right digital-brachial index is 0.46. The left ankle brachial index by the posterior tibial artery is 0.70. The left ankle brachial index by the dorsalis pedis is 0.65. The left digital-brachial index is 0.21. VL/Lower Ext Art Exam w/o Exercis Interpretation Summary Right JADE 0.68,moderate arterial insufficiency. Doppler/PVR waveforms and segme ntal pressures reveal [id number] femoral disease. Left JADE 0.7, moderate arterial insufficiency. Doppler/PVR waveforms and segmen reyes pressures reveal mrydz-[id number] femoral, distal SFA/popliteal disease Ordering Physician: Carolyn Crespo Referring Physician: CAROLYN CRESPO PA Performed By: Thee Denny RVT
[2023-09-18] MEDS: Metoprolol Tartrate 25 MG Tablet 75 MG PO ×2 (08:59→21:33)
[2023-09-18] MEDS: Losartan Potassium 100 MG Tablet PO (09:01)
[2023-09-18] MEDS: Oxybutynin 5 MG Tablet PO (09:01)
[2023-09-18] MEDS: 0.9% Saline Lock 10 ML Syringe IV ×2 (09:03→15:47)
[2023-09-18] MEDS: Vancomycin HCl 1,250 MG in 0.9% Normal Saline (250mL Bag) 250 ML 167 MG IV ×2 (09:21→20:20)
--- NOTE | 2023-09-18 10:45 | CON.PCM.SX_ITS ---
Assessment & Plan Assessment/Plan (1) Non-pressure chronic ulcer of other part of left foot with necrosis of bone: (2) Cellulitis of left foot: (3) Abscess of left foot: (4) Diabetes mellitus with diabetic polyneuropathy: PLAN: Plan Given extent of tissue damage and infection, agree that proximal amputation is indicated. Based on physical exam and PVRs, reasonable to proceed with below- knee amputation which will also give her the best chance at succeeding with a prosthetic. Discussed with patient and her at length the risks, benefits, and recovery associated with L BKA. We discussed risks including, but not limited to, infection, bleeding, and continued delayed healing with potential for subsequent more proximal amputation (AKA). We discussed the general process for obtaining a prosthesis including the need for ongoing PT/OT. We discussed that she may require acute rehab or care home care following the surgery. All of her and her 's questions and concerns were addressed. She acknowledges understanding of the risks and recovery and is agreeable to proceed with L BKA. Patient is tentatively scheduled for L BKA with Dr. Hernandez at 1430, time may change pending OR room/staff availability. She has been NPO since last night. Patient's most recent Hgb is 10.5. Will type and cross and hold 1 unit for surgery to have as needed. She is already on gabapentin, pending any phantom pains postoperatively can titrate this as needed. Continue ASA and statin. HPI Consult Data Date of Consult: 09/18/23 HPI Narrative HPI Narrative: MARY BETH CARDONA, is a 62 F who presented to the the [facility] ER on 09/17/2023 with diabetic left foot wounds and associated cellulitis and she was admitted for IV antibiotics and surgical management. She was evaluated by podiatry Dr. Hager who felt that the tissue loss was likely too significant for successful amputation within the foot and additionally very high likelihood of osteomyelitis involving multiple bones such that would require more proximal amputation to get effective source control. We are consulted for consideration of left below-knee amputation. Patient reports she has had wounds for about a year on this foot. She had been receiving wound care through podiatry in months wounds but unfortunately did not keep follow-up appointments. She and her report that the wounds were seem to get significantly worse rather suddenly this past Saturday with increased wound size, increased redness and drainage, and significant foul odor. She denies any nausea, vomiting, fevers, chills. She reports she was weightbearing at home. She denies claudication, VTE, prior vascular surgical intervention, history of hip or knee replacement or prior fracture repair of LLE. Her A1c today was 6.9. She does already take aspirin 81 mg daily, Lipitor 40 mg daily, and 600 mg twice daily. She does smoke. She is hoarse which she is mildly at baseline but reports she has had cottonmouth over the last week making it worse and now exacerbated by being NPO. Currently, she is on IV vancomycin and Zosyn. MRI of her LLE is pending. She is n.p.o. in anticipation of surgery. [facility] Medical History Cancer COPD (chronic obstructive pulmonary disease) CPAP (continuous positive airway pressure) dependence Depression Diabetes History of stress test Hoarseness Hypercholesteremia Hypertension Hypothyroidism Migraines Neuropathy Post-menopausal Restless legs Sleep apnea Smoker Home Medications albuterol sulfate 90 mcg/actuation aerosol inhaler 2 puff inhalation Q4H PRN WHEEZING/SOB 09/17/23 [History Last Taken Unknown] aspirin 81 mg tablet,delayed release 81 mg PO DAILY HEART HEALTH 09/17/23 [History Last Taken 09/16/23] atorvastatin 40 mg tablet 40 mg PO DAILY CHOLESTEROL 09/17/23 [History Last Taken 09/16/23] bupropion HCl 150 mg 24 hr tablet, extended release 150 mg PO DAILY DEPRESSION 09/17/23 [History Last Taken 09/16/23] fluticasone propionate 110 mcg/actuation HFA aerosol inhaler 1 puff inhalation BID ASTHMA 09/17/23 [History Last Taken 09/16/23] gabapentin 600 mg tablet 600 mg PO BID NEUROPATHY 09/17/23 [History Last Taken 09/16/23] levothyroxine 50 mcg tablet (Synthroid) 50 mcg PO DAILY THYROID 09/17/23 [History Last Taken Unknown] losartan 100 mg tablet 100 mg PO DAILY BLOOD PRESSURE 09/17/23 [History Last Taken 09/16/23] metformin 500 mg tablet,extended release 24 hr 500 mg PO BIDCM DIABETES 09/17/23 [History Last Taken 09/16/23] metoprolol tartrate 75 mg tablet 75 mg PO BID BLOOD PRESSURE 09/17/23 [History Last Taken 09/16/23] oxybutynin chloride 5 mg tablet 5 mg PO DAILY OVERACTIVE BLADDER 09/17/23 [History Last Taken 09/16/23] venlafaxine 75 mg tablet 75 mg PO BREAKFAST DEPRESSION 09/17/23 [History Last Taken 09/16/23] venlafaxine 75 mg tablet 150 mg PO QPM DEPRESSION 09/17/23 [History Last Taken 09/16/23] Allergy/AdvReac Type Severity Reaction Status Date / Time No Known Allergies Allergy Verified 09/17/23 17:38 Social History Smoking Status: Current every day smoker tobacco type: cigarettes Physical Exam Const alert, oriented x3 and no apparent distress General Appearance: cooperative HEENT normocephalic, head/scalp atraumatic, hearing grossly normal bilaterally, external ears normal and external nose normal Throat: hoarseness Eyes EOMs intact bilaterally General Eye: normal appearance of both eyes Neck General: normal visual inspection and trachea midline Resp normal respiratory effort Cardio regular rate and regular rhythm Extremity Extremity Narrative: L popliteal faintly palpable, with decent doppler signal. Did not assess PT/DP signals due to wound dressings in place. Mild LLE edema. No significant erythema/warmth extending past the level of the ankle. Skin Wounds: wounds noted Wound Narrative: L foot with wound dressings in place, C/D/I. Strong foul odor. Wound pictures from wound care nurse were reviewed which showed large lateral and plantar foot wounds which are both necrotic with associated focal swelling and apparent deep tracking. In addition, wound on 1st metatarsal. Neuro oriented x3, CN's II-XII intact bilaterally, moves all extremities and no focal motor deficits Speech: speech normal Psych mental status grossly normal Appearance: grossly normal Attitude: calm Activity / Motor Behavior: appropriate eye contact Speech: normal speech Judgement: judgement good Lab / Micro Data 09/18/23 06:40 09/18/23 06:40 Labs: Laboratory Results - last 24 hr 09/17/23 18:25: WBC 15.8 H, RBC 4.30, Hgb 11.3 L, Hct 35.3 L, MCV 82.1, MCH 26.3 L, MCHC 32.0, RDW Std Deviation 53.8 H, RDW Coeff of Cony 18.1 H, Plt Count 269, MPV 9.8, Immature Gran % (Auto) 1.800 H, Neut % (Auto) 83.7 H, Lymph % (Auto) 9.9 L, [place] % (Auto) 4.1, Eos % (Auto) 0.2, Baso % (Auto) 0.3, Absolute Neuts (auto) 13.2 H, Absolute Lymphs (auto) 1.56, Nucleated RBC % 0, ESR > 130 H, Sodium 133 L, Potassium 3.0 L, Chloride 102, Carbon Dioxide 21.0, Anion Gap 10, BUN 23 H, Creatinine 1.33 H, Estim Creat Clear Calc 38.96, Est GFR (MDRD) Af Amer 52 L, Est GFR (MDRD) Non-Af 43 L, BUN/Creatinine Ratio 17.3, Glucose 232 H, Calcium 8.7, C-React Prot Ext Range 135.00 H 09/17/23 19:16: PT 15.9 H, INR 1.3, Lactic Acid 2.3 H* 09/17/23 23:59: Lactic Acid 1.3 09/18/23 06:12: POC Glucose 114 H 09/18/23 06:40: WBC 13.6 H, RBC 4.05 L, Hgb 10.5 L, Hct 34.2 L, MCV 84.4, MCH 25.9 L, MCHC 30.7 L, RDW Std Deviation 56.0 H, RDW Coeff of Cony 18.2 H, Plt Count 274, MPV 10.0, Immature Gran % (Auto) 1.600 H, Neut % (Auto) 79.8 H, Lymph % (Auto) 13.5 L, [place] % (Auto) 4.2, Eos % (Auto) 0.6, Baso % (Auto) 0.3, Absolute Neuts (auto) 10.9 H, Absolute Lymphs (auto) 1.84, Nucleated RBC % 0, Sodium 136, Potassium 3.3 L, Chloride 111 H, Carbon Dioxide 21.0, Anion Gap 4 L, BUN 19 H, Creatinine 1.02, Estim Creat Clear Calc 56.95, Est GFR (MDRD) Af Amer 70, Est GFR (MDRD) Non-Af 58 L, BUN/Creatinine Ratio 18.6, Glucose 115 H, Hemoglobin A1c 6.9 H, Calcium 8.2 L, TSH 2.05 Radiology Impression Foot X-Ray 11/07/23 19:32 IMPRESSION: Soft tissue swelling with subcutaneous emphysema. There is a plantar wound. Curvilinear foreign bodies as noted. Electronically Signed: Serafin Hernandez DO at 20:22 EST , Charges/Coding Visit Charges Inpatient E&M: 42556 Init Hosp L3
--- NOTE | 2023-09-18 12:10 | CASEMGMT ---
AROLDO BIANCHI Assessment: Face to Face with pt for initial transition planning/care coordination assessment. AROLDO BIANCHI introduced self and role at [facility], pt voices understanding and consents to assessment. Pt is A&O x4 and answers all questions appropriately at this time. Care providers, pharmacy, and demographics verified/updated. Admitting Dx: DFU with Gangrene PCP: Pt. states she is currently in between PCPs and has an upcoming appt. with a new PCP at [facility] in [place] (unsure of date or who it is) Specialists: Pt. denies having any Preferred Pharmacy: [facility] ([place]) Insurance: [employer] [facility] Prescription Benefit: yes LNOK: Juan Manuel Duvall () Living Will/HCPOA: No and No. Pt. declines to receive information about ADs. Pt. informed it is a free service offered through [facility]. Living Arrangements: Pt lives at home with her and 25 y/o grandson in a 1 story home w/basement. FFSU and 3 steps w/o railing to enter. 12 steps (unsure of railing or not) to basement but pt. states she hardly ever goes to the basement. Prior to this admission pt. states she was doing okay with ambulating the stairs and ambulating in general. Prior to this admission pt. states she was I in all ADLs and IADLs. Transportation: Self and DME: shower chair, raised toilet, cane, crutches, grab bars, hand held shower, walker, CPAP, nebulizer. States she does not have her own glucometer or supplies so she uses her 's. Pt. informed we can look into getting a script for a glucometer and supplies for her. Pt' also informed that she can purchase a pulse ox OTC and she states she will look into if she could afford that. HHC/SNF: Denies previous HHC and SNF. Pt states she is willing to have HHC until she gets the hang of things. She declines a SNF. Pt states no further concerns/needs. CM to follow. Advised pt to ask CM if any further question/concerns/needs arise, voices understanding. Pt Goal: Home with HHC. Plan: TBD. Home with HHC vs. SNF. Follow PT/OT, Follow ID, Follow Vascular.
[2023-09-18 12:34] LABS: Bedside Glucose 122 mg/dL (74-106)
--- NOTE | 2023-09-18 13:46 | PCM.CONS.GEN ---
Assessment & Plan Assessment/Plan (1) Abscess of left foot: PLAN: Plan is for BKA today. On vanc/zosyn. Wound cx with GNR so far. Will follow, thank you, d/w Dr. Hager (2) Diabetes mellitus with diabetic polyneuropathy: HPI Consult Data Date of Consult: 09/18/23 HPI Narrative Reason for Consultation: gangrene HPI Narrative: MARY BETH CARDONA, is a 62 F with h/o htn, copd, DM, presented 09/17 with about 1 week progressive L foot ulceration, redness, swelling, drainage. No fever or chills. No pain in foot. No recent abx. Came to ED, xray done, admitted on vanc/zosyn. Plan is for BKA today. Full ROS performed and neg except as noted above. PFSH Medical History Cancer COPD (chronic obstructive pulmonary disease) CPAP (continuous positive airway pressure) dependence Depression Diabetes History of stress test Hoarseness Hypercholesteremia Hypertension Hypothyroidism Migraines Neuropathy Post-menopausal Restless legs Sleep apnea Smoker Home Medications albuterol sulfate 90 mcg/actuation aerosol inhaler 2 puff inhalation Q4H PRN WHEEZING/SOB 09/17/23 [History Last Taken Unknown] aspirin 81 mg tablet,delayed release 81 mg PO DAILY HEART HEALTH 09/17/23 [History Last Taken 09/16/23] atorvastatin 40 mg tablet 40 mg PO DAILY CHOLESTEROL 09/17/23 [History Last Taken 09/16/23] bupropion HCl 150 mg 24 hr tablet, extended release 150 mg PO DAILY DEPRESSION 09/17/23 [History Last Taken 09/16/23] fluticasone propionate 110 mcg/actuation HFA aerosol inhaler 1 puff inhalation BID ASTHMA 09/17/23 [History Last Taken 09/16/23] gabapentin 600 mg tablet 600 mg PO BID NEUROPATHY 09/17/23 [History Last Taken 09/16/23] levothyroxine 50 mcg tablet (Synthroid) 50 mcg PO DAILY THYROID 09/17/23 [History Last Taken Unknown] losartan 100 mg tablet 100 mg PO DAILY BLOOD PRESSURE 09/17/23 [History Last Taken 09/16/23] metformin 500 mg tablet,extended release 24 hr 500 mg PO BIDCM DIABETES 09/17/23 [History Last Taken 09/16/23] metoprolol tartrate 75 mg tablet 75 mg PO BID BLOOD PRESSURE 09/17/23 [History Last Taken 09/16/23] oxybutynin chloride 5 mg tablet 5 mg PO DAILY OVERACTIVE BLADDER 09/17/23 [History Last Taken 09/16/23] venlafaxine 75 mg tablet 75 mg PO BREAKFAST DEPRESSION 09/17/23 [History Last Taken 09/16/23] venlafaxine 75 mg tablet 150 mg PO QPM DEPRESSION 09/17/23 [History Last Taken 09/16/23] Allergy/AdvReac Type Severity Reaction Status Date / Time No Known Allergies Allergy Verified 09/17/23 17:38 Social History Smoking Status: Current every day smoker tobacco type: cigarettes Physical Exam Const alert, oriented x3 and no apparent distress General Appearance: cooperative HEENT normocephalic and head/scalp atraumatic Eyes PERRL and EOMs intact bilaterally Neck supple and No nodes Resp normal air movement and clear to auscultation bilaterally Cardio regular rate and regular rhythm GI soft to palpation, non-tender and non-distended Extremity General Extremity: edema Skin Skin Narrative: reviewed photos Neuro CN's II-XII intact bilaterally Lab / Micro Data Attestation: I reviewed the patient's lab results. 09/18/23 06:40 09/18/23 06:40 Labs: Laboratory Results - last 24 hr 09/17/23 18:25: WBC 15.8 H, RBC 4.30, Hgb 11.3 L, Hct 35.3 L, MCV 82.1, MCH 26.3 L, MCHC 32.0, RDW Std Deviation 53.8 H, RDW Coeff of Cony 18.1 H, Plt Count 269, MPV 9.8, Immature Gran % (Auto) 1.800 H, Neut % (Auto) 83.7 H, Lymph % (Auto) 9.9 L, [place] % (Auto) 4.1, Eos % (Auto) 0.2, Baso % (Auto) 0.3, Absolute Neuts (auto) 13.2 H, Absolute Lymphs (auto) 1.56, Nucleated RBC % 0, ESR > 130 H, Sodium 133 L, Potassium 3.0 L, Chloride 102, Carbon Dioxide 21.0, Anion Gap 10, BUN 23 H, Creatinine 1.33 H, Estim Creat Clear Calc 38.96, Est GFR (MDRD) Af Amer 52 L, Est GFR (MDRD) Non-Af 43 L, BUN/Creatinine Ratio 17.3, Glucose 232 H, Calcium 8.7, C-React Prot Ext Range 135.00 H 09/17/23 19:16: PT 15.9 H, INR 1.3, Lactic Acid 2.3 H* 09/17/23 23:59: Lactic Acid 1.3 09/18/23 06:12: POC Glucose 114 H 09/18/23 06:40: WBC 13.6 H, RBC 4.05 L, Hgb 10.5 L, Hct 34.2 L, MCV 84.4, MCH 25.9 L, MCHC 30.7 L, RDW Std Deviation 56.0 H, RDW Coeff of Cony 18.2 H, Plt Count 274, MPV 10.0, Immature Gran % (Auto) 1.600 H, Neut % (Auto) 79.8 H, Lymph % (Auto) 13.5 L, [place] % (Auto) 4.2, Eos % (Auto) 0.6, Baso % (Auto) 0.3, Absolute Neuts (auto) 10.9 H, Absolute Lymphs (auto) 1.84, Nucleated RBC % 0, Sodium 136, Potassium 3.3 L, Chloride 111 H, Carbon Dioxide 21.0, Anion Gap 4 L, BUN 19 H, Creatinine 1.02, Estim Creat Clear Calc 56.95, Est GFR (MDRD) Af Amer 70, Est GFR (MDRD) Non-Af 58 L, BUN/Creatinine Ratio 18.6, Glucose 115 H, Hemoglobin A1c 6.9 H, Calcium 8.2 L, TSH 2.05 09/18/23 11:40: POC Glucose 122 H 09/18/23 13:00: Blood Type B POSITIVE, Antibody Screen NEGATIVE, Crossmatch See Detail Micro: Microbiology 09/17/23 18:44 Wound - Left Foot Wound Culture - Preliminary GNR lactose public health aide Radiology Impression Foot X-Ray 09/17/23 19:32 IMPRESSION: Soft tissue swelling with subcutaneous emphysema. There is a plantar wound. Curvilinear foreign bodies as noted. Electronically Signed: Serafin Hernandez DO at 20:22 EST ,
[2023-09-18] MEDS: 0.9% Normal Saline (1000mL) 1,000 ML 15 ML IV ×2 (16:20→19:50)
[2023-09-18] MEDS: Bupivacaine 0.5% PF 10 ML VIAL (18:18)
--- NOTE | 2023-09-18 18:50 | PCM.OPRPT ---
Report of Operation Date of Procedure: 09/18/23 Pre-Operative Diagnosis: diabetic foot infection, PAD Post-Operative Diagnosis: same Surgery/Procedure Performed:: left below knee amputation Surgeon: Neptali Hernandez Type of Anesthesia: General Specimen's removed: left foot Estimated Blood Loss (mL): 300 Description of Procedure: HPI: Patient is a 62-year-old female who presented with diabetic foot infection and nonsalvageable foot. She had noninvasive vascular studies which revealed satisfactory perfusion to heal a below the knee amputation. She is taken now for left below the knee amputation Description of procedure: Upon obtaining form consent and verification correct patient procedure site patient taken to the operating where she was placed under general esthesia. She was then positioned prepped and draped you sterile fashion a time out was performed. Skin incision was then marked with a posterior flap configuration and incision made with a 10 blade. Bovie electrocautery was dissect down through subcutaneous tissue down to level the fascia of the anterior lateral compartments. This was then incised and the muscle divided with the Bovie down to the anterior tibial neurovascular bundle. Vessel was then ligated with silk ties and divided and further dissection carried down to the interosseous septum. Bovie was then used to divide the soft tissue adjacent to the tibia on the lateral aspect of the fibula circumferentially. Next Bovie was used to dissect on the medial aspect of the calf entering into the posterior compartments and dissection carried along the medial aspect of the tibia. At the medial and lateral aspects of the fascia was incised longitudinally along the length of the flap down to its distal edge. A Peg was then used to pull a lap sponge posterior to the tibia which was utilized to free posterior soft tissue attachments and protect the vessels. A periosteal elevator was used to mobilize the remaining soft tissue attachments to the remainder of the tibia and the circumferential surfaces of the fibula. A reciprocating saw was then used to divide the tibia with an anterior bevel. The fibula was divided with bone cutters and an amputation knife was used to fashion the posterior flap and complete the amputation. The specimen was passed off the field and the vessels were controlled with clamps. The peroneal and posterior tibial artery and vein were ligated with silk ties and divided distal. The nerve was then mobilized, injected with Marcaine, and a traction neurectomy performed allowing the nerve to retract up to the musculature. The soleus muscle was then excised in the posterior flap fashion from the gastrocnemius muscles. The incision was then irrigated with copious saline and inspected for hemostasis. Axiofil was then placed deep in the wound and the fascia closed with interrupted 2-0 Vicryl. The remainder of the axiofil was then placed in subcutaneous space and the skin closed with interrupted nylon sutures. Dry sterile dressing was then applied followed by posterior splint. Patient was awakened anesthesia taken recovery anticipated return to the medical surgical floor.
[2023-09-18] MEDS: Ipratropium/Albuterol Sulfate 3 ML AMPUL.NEB INHALATION (19:21)
[2023-09-18 19:34] LABS: Bedside Glucose 140 mg/dL (74-106)
--- NOTE | 2023-09-18 20:13 | MRI_ITS ---
STUDY: MRI LEFT FOREFOOT WITHOUT CONTRAST REASON FOR EXAM: Female, 62 years old. Left diabetic foot ulcer with Gangrene TECHNIQUE: Standardized fat and water weighted pulse sequences were obtained in all 3 orthogonal planes. There is motion artifact. COMPARISON: X-ray September 17, 2023. FINDINGS: There is susceptibility artifact associated with metallic structure adjacent to the fourth metatarsal. Normal metatarsophalangeal joint of the hallux. Normal tibial and fibular sesamoids, with normal sesamoids-first metatarsal articulations. Normal interphalangeal joint of the hallux. Normal proximal and distal phalanges of the great toe. Normal medial and lateral heads of the flexor hallucis brevis tendons. Normal flexor and extensor hallucis longus tendons. Normal second through fifth metatarsophalangeal (MTP) joints. Normal interphalangeal joints of the second through fifth toes. Normal proximal, middle and distal phalanges of the second through fifth toes. Normal first through fourth intermetatarsal spaces. Normal flexor and extensor tendons of the second through fifth toes. Normal visualized metatarsi. There is diffuse atrophy of the intrinsic muscles of the forefoot consistent with a peripheral neuropathy. There is soft tissue swelling of the foot. There is focal defect in the first submetatarsal region consistent with wound. MRI/Lower Ext/No Jt/w/o IMPRESSION: Soft tissue swelling with wound. No evidence of osteomyelitis. Electronically Signed: Norman Conley MD at 18:10 EST ,
--- NOTE | 2023-09-18 20:13 | MRI_ITS ---
STUDY: MRI LEFT ANKLE WITHOUT CONTRAST REASON FOR EXAM: Female, 62 years old. Left Foot diabetic foot ulcer with Gangrene TECHNIQUE: Standardized fat and water weighted pulse sequences were obtained in all 3 orthogonal planes. There is motion artifact. COMPARISON: X-ray September 17, 2023 FINDINGS: There is susceptibility artifact associated with metallic structures of the plantar aspect at the level of the calcaneus and fourth metatarsal. There are plantar and dorsal spurs of the calcaneus. There is 1.0 cm osteochondral injury of the medial talar dome. Normal posterior tibialis tendon. Normal flexor digitorum longus tendon. Normal flexor hallucis longus tendon. Normal peroneus longus and brevis tendons. Normal tibialis anterior tendon. Normal extensor hallucis longus tendon. Normal extensor digitorum longus tendons. Normal Achilles tendon and teno-osseous insertion. Normal plantar fascia. Normal plantar calcaneal tubercles. Normal intrinsic muscles of the rearfoot. Normal distal tibiofibular syndesmotic ligamentous complex. Normal lateral ligamentous complex. Normal subtalar ligaments and sinus tarsi. Normal deltoid ligamentous complexes. Normal plantar calcaneonavicular (spring) ligament. There is mild degenerative change at the tibiotalar articulation. Normal subtalar articulations. Normal talonavicular articulation. Normal calcaneocuboid articulation. Normal navicular-cuneiform articulations. MRI/Lower Ext Joint Only (Routine) IMPRESSION: No evidence of osteomyelitis. Osteochondral injury of the talar dome. Heel spurs. Electronically Signed: Norman Conley MD at 18:14 EST ,
[2023-09-18] MEDS: Gabapentin 600 MG Tablet PO (21:33)
[2023-09-18] MEDS: Glucerna Shake 120 ML LIQUID PO (21:33)
[2023-09-18] MEDS: Venlafaxine HCl 75 MG Tablet 150 MG PO (21:33)
[2023-09-18] MEDS: Atorvastatin Calcium 40 MG Tablet PO (21:34)
[2023-09-18] MEDS: Acetaminophen 500 MG Tablet 1000 MG PO (21:35)
[2023-09-18] MEDS: Insulin Lispro 100 UNIT/ML INSULN.PEN SC (21:40)
[2023-09-18 22:00] LABS: Bedside Glucose 152 mg/dL (74-106)
[2023-09-19] VITALS (14 sets, daily range): BP systolic 102–126; BP diastolic 56–88; PULSE 58–79; RESP 16–20; TEMP 36.3–36.8; O2SAT 87–98
--- NOTE | 2023-09-19 | AMP_PTH ---
PATIENT: MARY BETH CARDONA LOC: [facility]3 U#:[id number] AGE/SX: 62/F ROOM: SD31 RE09/17/[address]: Dr. Neptali Recinos DO : 1960 BED: 1 DIS: 09/25/2023 SPEC #: [id number] RECD: 09/19/23 13:42 STATUS: ISSAC REApurva #: [id number] MARIUSZ: 09/19/23 00:[address]: Neptali Hernandez DEPT: SURGICAL PATHOLOGY RECD BY: Nathalie Galarza ENTERED: 09/19/23 13:47 SP TYPE: Amputation OTHR DR: DO Dr. Neptali Cueva DO Dr. Eric Turney, MD Dr. Prakash Chand, MD Dr. Robert Leininger, MD No Primary Care Phys Tissues: Left leg Procedures: Decalcification bone/plaque Comments: @ Ordering doctor for DEC edited from to @ by NILA at 09/23/23 142 @ Submitting doctor edited from to @ by RGOOD at 09/23/23 142 HEADER OPERATION: Below knee amputation PRE-OP DIAGNOSIS: Non-pressure chronic ulcer of other part of left foot with necrosis of bone, abscess and cellulitis of left foot, diabetes mellitus with diabetic polyneuropathy TISSUE SUBMITTED: Left below knee amputation MICROSCOPIC DIAGNOSIS Left below the knee amputation: Skin and soft tissue with hyperkeratosis, ulceration, ssociated acute and chronic inflammation and granulation. Anterior and posterior tibial arteries with moderate to severe atherosclerosis. Bone beneath ulcer with chronic change. Margins of excision with no significant pathologic change. AM:ramón 09/25/2023 MICROSCOPIC DESCRIPTION Slides are reviewed. GROSS DESCRIPTION Received in fixative is one container labeled with the patient's name and designated left below knee amputation. The specimen consists of a below knee amputation of left lower extremity. The leg measures from anterior cutaneous resection margin to heel 30.0 cm, from heel to tip of great toe 27.0 cm. The posterior cutaneous resection margin is 12.0 cm below the anterior cutaneous resection margin. 2.0 cm of tibia and 3.0 cm portion of fibula is extending beyond the anterior cutaneous resection margin. Multiple ulcerated areas are noted on the bottom on the foot. The largest ulcerated area present in the center portion of the foot measures 3.5 cm in greatest dimension. One ulcerated area present below the great toe measures 2.5 cm in greatest dimension. One is present on the dorsal surface of the foot at the lateral margin below the little toe measuring 3.5 cm in greatest dimension. Focal hyperkeratotic areas are also noted on the plantar surface of the foot below the great toe measuring 3.0 cm in greatest dimension and one on the lateral surface of the foot measuring 2.0 cm in greatest dimension. The anterior tibial and posterior tibial vessels are dissected. [employer] sections are submitted as follows: 1 - cutaneous and skeletal resection margin, 2 - ulcerated areas, 3 - hyperkeratotic area on the lateral and plantar surface of the foot; hyperkeratotic area on the lateral surface of the foot is inked black, 4 - bone marrow at?the resection margin, 5 - dorsalis pedis vessel, 6 - anterior tibial vessel, 7 - posterior tibial vessel, 8?&?9?- bone underneath the ulcerated area after decalcification. / SJ:rg 09/20/2023 TC:2 CPT: 60957
[2023-09-19] MEDS: oxyCODONE 5 MG Tablet PO ×4 (04:52→22:18)
[2023-09-19] MEDS: Acetaminophen 500 MG Tablet 1000 MG PO ×3 (05:07→21:16)
[2023-09-19] MEDS: Piperacil/Tazobactam 3.375 GM in 0.9% Normal Saline (50mL MB+) 50 ML IV ×3 (05:08→21:30)
[2023-09-19 06:33] LABS: Bedside Glucose 147 mg/dL (74-106)
[2023-09-19] MEDS: Budesonide Respules 0.5 MG/2 ML AMPUL.NEB. INHALATION ×2 (07:05→19:30)
[2023-09-19 07:54] LABS: Absolute Lymphocyte Count 1.67 X10^3/uL (0.83-4.51); Absolute Neutrophil Count 12.7 X10^3/uL (2.0-7.7); Basophil# 0.05 X10^3/uL; Basophil% 0.3 % (0-1); Eosinophil# 0.02 X10^3/uL; Eosinophils% 0.1 % (0-5); Hematocrit 34.2 % (37-47); Hemoglobin 10.3 g/dL (12.0-15.0); Lymphocyte # 1.67 X10^3/ul (0.83-4.51); Lymphocyte % 10.9 % (19-41); Mean Corp Hgb Conc 30.1 g/dL (32-36); Mean Corpuscular Volume 86.4 fL (81-99); Mean Platelet Vol. 9.8 fl (6.2-12.0); Monocyte# 0.51 X10^3/uL; Monocyte% 3.3 % (0-10); NRBC Flagged by Analyzer 0 % (0-5); Neutrophil # 12.71 X10^3/uL (2.7-7.7); Platelet Count 313 K/mm3 (150-450); RBC Distribution Width CV 18.8 % (11.6-14.6); RBC Distribution Width SD 59.1 fl (35.1-43.9); Red Blood Count 3.96 M/mm3 (4.2-5.4); White Blood Count 15.3 K/mm3 (4.4-11.0)
--- NOTE | 2023-09-19 08:29 | PCM.PN.HOSP ---
Reason for Visit Reason for Visit: Diagnoses Type 2 diabetes mellitus with diabetic polyneuropathy (09/17/23) Cutaneous abscess of left foot (09/17/23) Cellulitis of left lower limb (09/17/23) Non-pressure chronic ulcer of other part of left foot with necrosis of bone (09/17/23) Objective Data Objective Data Vital Signs: Vital Signs Temp Pulse Resp BP Pulse Ox O2 Del Method O2 Flow Rate 98 F 79 20 H 120/88 H 93 Nasal Cannula 4 09/19/23 04:30 09/19/23 07:42 09/19/23 07:42 09/19/23 04:30 09/19/23 07:42 09/19/23 07:42 09/19/23 07:42 Oxygen Flow Rate (L/min) 4 Oxygen Delivery Method Nasal Cannula Weight: 217 lb 13.067 oz Body Mass Index (BMI) 32.6 Intake & Output: Intake and Output for Last 24 Hours 09/17/23 09/18/23 09/19/23 23:59 23:59 23:59 Intake Total 2580 / 2580 705.0 / 705.0 50 / 50 Output Total 400 / 400 Balance 2580 / 2580 705.0 / 705.0 -350 / -350 Lab / Micro Data 09/19/23 07:40 09/19/23 07:40 Labs: Laboratory Results - last 24 hr 09/18/23 11:40: POC Glucose 122 H 09/18/23 13:00: Blood Type B POSITIVE, Antibody Screen NEGATIVE, Crossmatch See Detail 09/18/23 19:14: POC Glucose 140 H 09/18/23 21:31: POC Glucose 152 H 09/19/23 06:08: POC Glucose 147 H 09/19/23 07:40: WBC 15.3 H, RBC 3.96 L, Hgb 10.3 L, Hct 34.2 L, MCV 86.4, MCH 26.0 L, MCHC 30.1 L, RDW Std Deviation 59.1 H, RDW Coeff of Cony 18.8 H, Plt Count 313, MPV 9.8, Immature Gran % (Auto) 2.400 H, Neut % (Auto) 83.0 H, Lymph % (Auto) 10.9 L, Motley % (Auto) 3.3, Eos % (Auto) 0.1, Baso % (Auto) 0.3, Absolute Neuts (auto) 12.7 H, Absolute Lymphs (auto) 1.67, Nucleated RBC % 0 Micro: Microbiology 09/17/23 18:44 Wound - Left Foot Gram Stain - Final 09/17/23 18:44 Wound - Left Foot Wound Culture - Preliminary Escherichia coli Beta streptococcus Radiography Diagnostic Testing: Radiology Impression Extremity Arterial Study 09/18/23 08:50 Interpretation Summary Right JADE 0.68,moderate arterial insufficiency. Doppler/PVR waveforms and segmental pressures reveal pkdno-qhaer-feierkuj femoral disease. Left JADE 0.7, moderate arterial insufficiency. Doppler/PVR waveforms and segmental pressures reveal deycl-lswaj-zidscocc femoral, distal SFA/popliteal disease Ordering Physician: Carolyn Crespo Referring Physician: CAROLYN CRESPO Performed By: Thee Denny RVT Lower Extremity MRI 09/18/23 20:13 IMPRESSION: Soft tissue swelling with wound. No evidence of osteomyelitis. Electronically Signed: Norman Conley MD at 18:10 EST Reading Location ID and State: [facility] / [place] , Service support , Lower Extremity MRI 09/18/23 20:13 IMPRESSION: No evidence of osteomyelitis. Osteochondral injury of the talar dome. Heel spurs. Electronically Signed: Norman Conley MD at 18:14 EST , Physical Exam Narrative Seen and examined. 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 Patient is states she still smokes cigarettes half pack per day. She was smoking 1/2 pack/day earlier during teenage and 20s. Physical exam general: Alert, Oriented x3, Cooperative HEENT: Atraumatic, PERRLA, EOMI, Normocephalic Oral: No Gingival or Mucosal Lesions/ Ulcerations Neck: Supple, No JVD, Negative Carotid Bruits Lungs: Air entry diminished in bilateral lung bases. Bilateral fine expiratory rhonchi. Cardiovascular: Regular rate, Regular Rhythm, Normal S1, Normal S2, No murmurs Abdomen: Bowel Sounds Present, Soft, Non Tender, Non-Distended : No renal angle tenderness. No suprapubic tenderness. Extremities: Left BKA. No seepage or bleeding or drainage. Dressing is dry. No edema, Capillary Refill Less than 3 Seconds Skin: No rashes, No breakdown Musculoskeletal: No Tenderness to Palpation of Joints or Extremities ROM restricted of left lower extremity. Neurological: Cranial nerves II-XII grossly intact, DTR 2+/4. No acute focal neurological deficit. Psych/Mental Status: Flat affect. Assessment & Plan Assessment/Plan (1) Non-pressure chronic ulcer of other part of left foot with necrosis of bone: PLAN: Severe diabetic foot wound with SQ emphysema. Ulceration from head of 1st MTP, lateral 5th metatarsal and plantar midfoot to the level of the navicular bone. Plantar tissue profoundly compromised. Not amenable to partial amputation given high risk for failure, therefore BKA is planned. ESR >130, CRP 135. MRI ordered. Check JADE Consults to podiatry, ID and vascular surgery. Abx with vancomycin and pip/tazo. Patient hadLeft BKA surgery yesterday. Wound culture shows E. coli and Streptococcus still not final yet\\ Extremity Arterial Study 09/18/23 08:50 Interpretation Summary Right JADE 0.68,moderate arterial insufficiency. Doppler/PVR waveforms and segmental pressures reveal lhoiu-jbrcx-zmkfejdy femoral disease. Left JADE 0.7, moderate arterial insufficiency. Doppler/PVR waveforms and segmental pressures reveal jgjqd-lotsn-tmuvvwzz femoral, distal SFA/popliteal disease Lower Extremity MRI 09/18/23 20:13 IMPRESSION: No evidence of osteomyelitis. Osteochondral injury of the talar dome. Heel spurs. (2) Diabetes mellitus with diabetic polyneuropathy: QUALIFIERS: Diabetes mellitus type: type 2 Diabetes mellitus terminal makeup operator insulin use: without longterm use Qualified Code(s): E11.42 - Type 2 diabetes mellitus with diabetic polyneuropathy PLAN: uncontrolled. A1c 6.9%. Glucose is between 1 47-1 52. PLAN: Plan Chronic conditions: Ongoing tobacco abuse adding to the pathology of #1 and #2 - Tobacco cessation will be strongly encouraged with nicotine patch offered to control cravings. Positive family history of peripheral vascular disease in her mother who underwent a left lower extremity amputation as well - Noted. Essential hypertension - Continue home medications as previous. Give IV hydralazine as needed for systolic blood pressure greater than 160 mmHg. Hyperlipidemia - Continue statin as previous. DVT prophylaxis -Lovenox 40 mg subcu daily. Disposition: TBD. Patient may require SNF post-operatively. DW patient's at bedside. Charges/Coding Visit Charges Inpatient E&M: 35182 Subs Hosp L2
[2023-09-19 08:32] LABS: Anion Gap 5 (5-15); BUN 31 mg/dL (7-18); BUN/Creat Ratio 24.4 RATIO (10-20); Calcium,Total 8.1 mg/dL (8.5-10.1); Chloride 113 mmol/L (98-107); Creatinine, Serum 1.27 mg/dL (0.55-1.02); EST Glomerular Filtration Rate 45 mL/min (>60); Est Glom Filt Rate - Afr Amer 55 mL/min (>60); Estimated Creatinine Clearance 45.74 ml/min; Glucose 136 mg/dL (74-106); Potassium 3.8 mmol/L (3.5-5.1); Sodium Level 138 mmol/L (136-145)
[2023-09-19 08:34] LABS: Vancomycin, Trough Level 22.8 ug/mL (5.0-15.0)
--- NOTE | 2023-09-19 08:53 | PCM.PN.SRG ---
Subjective Subjective Patient was examined this morning after L BKA yesterday afternoon. She reports her pain is well controlled on current regimen. She denies any N/V, F/C, CP, SOB. Post-op dressings are C/D/I. Nursing reports no bleed-through overnight and have not had to bolster the dressings. She is requiring 4L O2 this morning, was on RA prior to surgery yesterday, but she denies any SOB, CP. Her voice remains hoarse, stable from prior to surgery. Objective Data Objective Data Vital Signs: Vital Signs Temp Pulse Resp BP Pulse Ox O2 Del Method O2 Flow Rate 98 F 79 20 H 120/88 H 93 Nasal Cannula 4 09/19/23 04:30 09/19/23 07:42 09/19/23 07:42 09/19/23 04:30 09/19/23 07:42 09/19/23 07:42 09/19/23 07:42 Oxygen Flow Rate (L/min) 4 Oxygen Delivery Method Nasal Cannula Weight: 217 lb 13.067 oz Body Mass Index (BMI) 32.6 Intake & Output: Intake and Output for Last 24 Hours 09/17/23 09/18/23 09/19/23 23:59 23:59 23:59 Intake Total 2580 / 2580 705.0 / 705.0 50 / 50 Output Total 400 / 400 Balance 2580 / 2580 705.0 / 705.0 -350 / -350 Lab / Micro Data 09/19/23 07:40 09/19/23 07:40 Labs: Laboratory Results - last 24 hr 09/18/23 11:40: POC Glucose 122 H 09/18/23 13:00: Blood Type B POSITIVE, Antibody Screen NEGATIVE, Crossmatch See Detail 09/18/23 19:14: POC Glucose 140 H 09/18/23 21:31: POC Glucose 152 H 09/19/23 06:08: POC Glucose 147 H 09/19/23 07:40: WBC 15.3 H, RBC 3.96 L, Hgb 10.3 L, Hct 34.2 L, MCV 86.4, MCH 26.0 L, MCHC 30.1 L, RDW Std Deviation 59.1 H, RDW Coeff of Cony 18.8 H, Plt Count 313, MPV 9.8, Immature Gran % (Auto) 2.400 H, Neut % (Auto) 83.0 H, Lymph % (Auto) 10.9 L, Millard % (Auto) 3.3, Eos % (Auto) 0.1, Baso % (Auto) 0.3, Absolute Neuts (auto) 12.7 H, Absolute Lymphs (auto) 1.67, Nucleated RBC % 0, Sodium 138, Potassium 3.8, Chloride 113 H, Carbon Dioxide 20.0 L, Anion Gap 5, BUN 31 H, Creatinine 1.27 H, Estim Creat Clear Calc 45.74, Est GFR (MDRD) Af Amer 55 L, Est GFR (MDRD) Non-Af 45 L, BUN/Creatinine Ratio 24.4 H, Glucose 136 H, Calcium 8.1 L, Vancomycin Trough 22.8 H Micro: Microbiology 09/17/23 18:44 Wound - Left Foot Gram Stain - Final 09/17/23 18:44 Wound - Left Foot Wound Culture - Preliminary Escherichia coli Beta streptococcus Radiography Diagnostic Testing: Radiology Impression Extremity Arterial Study 09/18/23 08:50 Interpretation Summary Right JADE 0.68,moderate arterial insufficiency. Doppler/PVR waveforms and segmental pressures reveal ozsjg-oormp-kdluzvue femoral disease. Left JADE 0.7, moderate arterial insufficiency. Doppler/PVR waveforms and segmental pressures reveal miwlv-ytaot-roqmvdwj femoral, distal SFA/popliteal disease Ordering Physician: Carolyn Crespo Referring Physician: CAROLYN CRESPO Performed By: Thee Denny, RVT Lower Extremity MRI 09/18/23 20:13 IMPRESSION: Soft tissue swelling with wound. No evidence of osteomyelitis. Electronically Signed: Norman Conley MD at 18:10 EST , Lower Extremity MRI 09/18/23 20:13 IMPRESSION: No evidence of osteomyelitis. Osteochondral injury of the talar dome. Heel spurs. Electronically Signed: Norman Conley MD at 18:14 EST , Physical Exam Const alert, oriented x3 and no apparent distress General Appearance: cooperative HEENT normocephalic, head/scalp atraumatic, hearing grossly normal bilaterally, external ears normal and external nose normal Throat: hoarseness Eyes EOMs intact bilaterally General Eye: normal appearance of both eyes Neck General: normal visual inspection and trachea midline Resp normal respiratory effort Cardio regular rate and regular rhythm [facility] in place C/D/I. No visible bleed-through. Neuro oriented x3, CN's II-XII intact bilaterally, moves all extremities and no focal motor deficits Speech: speech normal Psych mental status grossly normal Appearance: grossly normal Attitude: calm Activity / Motor Behavior: appropriate eye contact Speech: normal speech Judgement: judgement good Assessment & Plan Assessment/Plan (1) Non-pressure chronic ulcer of other part of left foot with necrosis of bone: (2) Diabetes mellitus with diabetic polyneuropathy: PLAN: Plan Patient is POD#1 from [facility]. Post-operative dressings to remain in place today as long as they remain C/D/I. I will take them down tomorrow morning. Tomorrow, [employer] will place a rigid protective device with extension. Hgb today is stable at 10.3. WBC has increased slightly to 15.3, likely reactionary to surgery, she remains on IV antibiotics per ID. Will continue to monitor. She is on supplemental oxygen following surgery yesterday, will continue to monitor and work on weaning throughout the day. Her pain is currently well-controlled, will continue with current regimen.
[2023-09-19] MEDS: Oxybutynin 5 MG Tablet PO (09:09)
[2023-09-19] MEDS: Venlafaxine HCl 75 MG Tablet PO (09:09)
--- NOTE | 2023-09-19 09:09 | PCM.RX.CS ---
Consult Antibiotic Management Pharmacy has been consulted to manage selected antiobiotic: Vancomycin Type of Intervention Type of Consult: Follow-up Suspected Infection Suspected Infection: Skin/Soft tissue Prior Doses of Antibiotics Prior Doses of Antibiotics Received/Current Regimen: Current order of 1250mg iv q12h Labs Labs: Sodium 138 mmol/L (136-145) 09/19/23 07:40 Potassium 3.8 mmol/L (3.5-5.1) 09/19/23 07:40 Chloride 113 mmol/L (98-107) H 09/19/23 07:40 Carbon Dioxide 20.0 mmol/L (21.0-32.0) L 09/19/23 07:40 Anion Gap 5 (5-15) 09/19/23 07:40 BUN 31 mg/dL (7-18) H 09/19/23 07:40 Creatinine 1.27 mg/dL (0.55-1.02) H 09/19/23 07:40 Est GFR (MDRD) Af Amer 55 mL/min (>60) L 09/19/23 07:40 Est GFR (MDRD) Non-Af 45 mL/min (>60) L 09/19/23 07:40 BUN/Creatinine Ratio 24.4 RATIO (10-20) H 09/19/23 07:40 Glucose 136 mg/dL (74-106) H 09/19/23 07:40 Vancomycin Trough 22.8 ug/mL (5.0-15.0) H 09/19/23 07:40 Microbiology Microbiology: Microbiology 09/17/23 18:44 Wound - Left Foot Gram Stain - Final 09/17/23 18:44 Wound - Left Foot Wound Culture - Preliminary Escherichia coli Beta streptococcus Dosing Weight Weight used for dosin.8 kg Estimated Creatinine Clearance Estimated Creatinine Clearance: 56ml/min Goal Trough Goal Trough: 15-20 mcg/mL Pharmacy Plan for Drug Dosing Pharmacy Plan for Drug Dosing: Trough today elevated at 22.8. Cr change 1.02 to 1.27. CrCl ~56ml/min calculated for adjusted body weight. Will hold dosing and get random level this PM. Resume when level <20. Pharmacy Service will continue to monitor and adjust dosing as required. Follow-Up Labs Follow-Up Labs: Trough: Other (random vanco 09.19.23 @1999)
[2023-09-19] MEDS: buPROPion (XL) 150 MG TABLET.XL PO (09:10)
[2023-09-19] MEDS: Metoprolol Tartrate 25 MG Tablet 75 MG PO ×2 (09:10→21:16)
[2023-09-19] MEDS: Losartan Potassium 100 MG Tablet PO (09:11)
[2023-09-19] MEDS: Aspirin E.C. 81 MG Tablet PO (09:11)
[2023-09-19] MEDS: Enoxaparin 40 MG/0.4 ML Syringe SC (09:12)
[2023-09-19] MEDS: Gabapentin 600 MG Tablet PO ×2 (09:17→21:20)
[2023-09-19] MEDS: Influenza Virus Vac Quad 23-24 60 MCG/0.5 ML SYRINGE IM (09:19)
--- NOTE | 2023-09-19 10:17 | PCM.PN.ID ---
Physical Exam Narrative Sleeping this AM, no fever Const no apparent distress Resp normal air movement and clear to auscultation bilaterally Cardio regular rate and regular rhythm GI soft to palpation, non-tender and non-distended Skin no rashes or lesions noted ID ID: Route of nutrition/ use of supplements: [] Nutritional Intake: [] IV Site: [] Reyes Catheter: [] Assessment & Plan Assessment/Plan (1) Abscess of left foot: PLAN: BKA 09/18/[address] Hernandez. On vanc/zosyn. Wound cx with ecoli and strep so far. Will follow (2) Diabetes mellitus with diabetic polyneuropathy:
[2023-09-19] MEDS: Insulin Lispro 100 UNIT/ML INSULN.PEN SC ×2 (11:41→21:17)
[2023-09-19 12:08] LABS: Bedside Glucose 167 mg/dL (74-106)
[2023-09-19 19:11] LABS: Bedside Glucose 139 mg/dL (74-106)
[2023-09-19 20:16] LABS: Vancomycin, Random Level 19.3 ug/mL (0.0-15.0)
--- NOTE | 2023-09-19 20:48 | PCM.RX.CS ---
Consult Antibiotic Management Pharmacy has been consulted to manage selected antiobiotic: Vancomycin Type of Intervention Type of Consult: Follow-up Suspected Infection Suspected Infection: Skin/Soft tissue (FOOT INFECTION) Prior Doses of Antibiotics Prior Doses of Antibiotics Received/Current Regimen: vancomycin 1250 mg IV given 09/18 @ 21 and 09/18 @ 2019 Labs Labs: Sodium 138 mmol/L (136-145) 09/19/23 07:40 Potassium 3.8 mmol/L (3.5-5.1) 09/19/23 07:40 Chloride 113 mmol/L (98-107) H 09/19/23 07:40 Carbon Dioxide 20.0 mmol/L (21.0-32.0) L 09/19/23 07:40 Anion Gap 5 (5-15) 09/19/23 07:40 BUN 31 mg/dL (7-18) H 09/19/23 07:40 Creatinine 1.27 mg/dL (0.55-1.02) H 09/19/23 07:40 Est GFR (MDRD) Af Amer 55 mL/min (>60) L 09/19/23 07:40 Est GFR (MDRD) Non-Af 45 mL/min (>60) L 09/19/23 07:40 BUN/Creatinine Ratio 24.4 RATIO (10-20) H 09/19/23 07:40 Glucose 136 mg/dL (74-106) H 09/19/23 07:40 Vancomycin Trough 22.8 ug/mL (5.0-15.0) H 09/19/23 07:40 Random Vancomycin 19.3 ug/mL (0.0-15.0) H 09/19/23 19:30 Microbiology Microbiology: Microbiology 09/17/23 18:44 Wound - Left Foot Gram Stain - Final 09/17/23 18:44 Wound - Left Foot Wound Culture - Preliminary Escherichia coli Beta streptococcus Dosing Weight Weight used for dosin.8 kg Estimated Creatinine Clearance Estimated Creatinine Clearance: ~ 45 Goal Trough Goal Trough: 15-20 mcg/mL Pharmacy Plan for Drug Dosing Pharmacy Plan for Drug Dosing: Vancomycin repeat random level = 19.3, will resume with vancomycin 750 mg IV Q12H Pharmacy Service will continue to monitor and adjust dosing as required. Follow-Up Labs Follow-Up Labs: Trough: Vancomycin Date/Time Labs Ordered Labs to be done on [date and time ordered]: 09/21/23 @ 4132
[2023-09-19] MEDS: Atorvastatin Calcium 40 MG Tablet PO (21:16)
[2023-09-19] MEDS: Venlafaxine HCl 75 MG Tablet 150 MG PO (21:17)
[2023-09-19] MEDS: 0.9% Saline Lock 10 ML Syringe IV (21:17)
[2023-09-19] MEDS: 0.9% Normal Saline (250mL Bag) 250 ML 15 ML IV (21:20)
[2023-09-19] MEDS: Vancomycin HCl 750 MG in 0.9% Normal Saline (250mL Bag) 250 ML 250 MG IV (21:47)
[2023-09-19 21:51] LABS: Bedside Glucose 170 mg/dL (74-106)
[2023-09-19] MEDS: Vancomycin Trough/Random Due 1 LAB MC (22:12)
[2023-09-20] VITALS (8 sets, daily range): BP systolic 108–132; BP diastolic 55–105; PULSE 63–80; RESP 16–18; TEMP 36.2–36.7; O2SAT 90–98
[2023-09-20] MEDS: oxyCODONE 5 MG Tablet PO ×4 (04:57→17:35)
[2023-09-20] MEDS: Acetaminophen 500 MG Tablet 1000 MG PO ×3 (05:00→22:18)
[2023-09-20] MEDS: Piperacil/Tazobactam 3.375 GM in 0.9% Normal Saline (50mL MB+) 50 ML IV (05:31)
[2023-09-20] MEDS: Budesonide Respules 0.5 MG/2 ML AMPUL.NEB. INHALATION ×2 (06:49→19:29)
[2023-09-20 06:59] LABS: Bedside Glucose 105 mg/dL (74-106)
[2023-09-20] MEDS: Aspirin E.C. 81 MG Tablet PO (07:56)
[2023-09-20] MEDS: Venlafaxine HCl 75 MG Tablet PO (07:57)
[2023-09-20] MEDS: Losartan Potassium 100 MG Tablet PO (07:57)
[2023-09-20] MEDS: Enoxaparin 40 MG/0.4 ML Syringe SC (07:58)
[2023-09-20] MEDS: Oxybutynin 5 MG Tablet PO (07:58)
[2023-09-20] MEDS: buPROPion (XL) 150 MG TABLET.XL PO (07:58)
[2023-09-20] MEDS: Metoprolol Tartrate 25 MG Tablet 75 MG PO ×2 (07:59→22:18)
--- NOTE | 2023-09-20 07:59 | PCM.PN.SRG ---
Subjective Subjective Patient was resting comfortably this morning prior to dressing change. She reports her pain has been well-controlled overall. She denies any N/V, F/C. She is now off supplemental O2. She has not had any bleed-through or excess drainage from the operative site. Objective Data Objective Data Vital Signs: Vital Signs Temp Pulse Resp BP Pulse Ox O2 Del Method O2 Flow Rate 97.2 F L 63 16 111/62 98 Room Air 2 09/20/23 07:46 09/20/23 07:46 09/20/23 07:46 09/20/23 07:46 09/20/23 07:46 09/20/23 07:46 09/19/23 21:36 Oxygen Flow Rate (L/min) 2 Oxygen Delivery Method Room Air Weight: 217 lb 13.067 oz Body Mass Index (BMI) 32.6 Intake & Output: Intake and Output for Last 24 Hours 09/18/23 09/19/23 09/20/23 23:59 23:59 23:59 Intake Total 705.0 / 705.0 775 / 775 550 / 550 Output Total 700 / 700 300 / 300 Balance 705.0 / 705.0 75 / 75 250 / 250 Lab / Micro Data 09/19/23 07:40 09/19/23 07:40 Labs: Laboratory Results - last 24 hr 09/19/23 07:40: Sodium 138, Potassium 3.8, Chloride 113 H, Carbon Dioxide 20.0 L, Anion Gap 5, BUN 31 H, Creatinine 1.27 H, Estim Creat Clear Calc 45.74, Est GFR (MDRD) Af Amer 55 L, Est GFR (MDRD) Non-Af 45 L, BUN/Creatinine Ratio 24.4 H, Glucose 136 H, Calcium 8.1 L, Vancomycin Trough 22.8 H 09/19/23 11:37: POC Glucose 167 H 09/19/23 17:55: POC Glucose 139 H 09/19/23 19:30: Random Vancomycin 19.3 H 09/19/23 21:09: POC Glucose 170 H 09/20/23 06:40: POC Glucose 105 Micro: Microbiology 09/17/23 18:44 Wound - Left Foot Gram Stain - Final 09/17/23 18:44 Wound - Left Foot Wound Culture - Preliminary Escherichia coli Beta streptococcus Physical Exam Const alert, oriented x3 and no apparent distress General Appearance: cooperative HEENT normocephalic, head/scalp atraumatic, hearing grossly normal bilaterally, external ears normal and external nose normal Throat: hoarseness Eyes EOMs intact bilaterally General Eye: normal appearance of both eyes Neck General: normal visual inspection and trachea midline Resp normal respiratory effort Cardio regular rate and regular rhythm Extremity Extremity Narrative: L BKA incision site is well-approximated with sutures intact and skin edges viable. There is minimal oozing along the incision site. There is no dehiscence, erythema, excess warmth, focal swelling, foul odor. Neuro oriented x3, CN's II-XII intact bilaterally, moves all extremities and no focal motor deficits Speech: speech normal Psych mental status grossly normal Appearance: grossly normal Attitude: calm Activity / Motor Behavior: appropriate eye contact Speech: normal speech Judgement: judgement good Assessment & Plan Assessment/Plan (1) Non-pressure chronic ulcer of other part of left foot with necrosis of bone: (2) Cellulitis of left foot: (3) Diabetes mellitus with diabetic polyneuropathy: QUALIFIERS: Diabetes mellitus type: type 2 Diabetes mellitus local intermodal truck driver insulin use: without local intermodal truck driver use Qualified Code(s): E11.42 - Type 2 diabetes mellitus with diabetic polyneuropathy PLAN: Plan Ms. Duvall is POD#2 s/p L BKA. Postoperative dressings were removed with assistance of wound care nurse this morning. The incision site is satisfactory in appearance without signs of infection. The incision site was re-dressed with adaptic to the suture line and then Kerlix wrap. Continue with these dressings, changing daily or more often as needed to keep clean and dry. May use an YONATHAN wrap for compression to help with any swelling. Okay to gently wash the area with antibacterial soap and water, pat to dry. Do not submerge the incision site/amputation stump in water such as to take a bath. [employer] will come today to place the rigid protective device with extension. This device will protect the amputation stump and should be left in place especially with transport/transfer. It is okay to remove for PT as needed to work on knee ROM. PT/OT evaluation and recommendations hopefully this afternoon. Patient has declined SNF/acute rehab but considering HHC. Her pain is well controlled on PO regimen. Discharge planning per primary team. From a vascular perspective, okay to discharge once rigid protective device is in place and PT/OT has evaluated. We will coordinate outpatient follow-up in office in about 3 weeks at which time we will remove first half of her sutures.
[2023-09-20] MEDS: Gabapentin 600 MG Tablet PO ×2 (08:00→22:17)
--- NOTE | 2023-09-20 08:01 | WOUNDNOTE ---
wound photo: left stump
--- NOTE | 2023-09-20 08:02 | WOUNDNOTE ---
wound photo: left stump
[2023-09-20] MEDS: 0.9% Saline Lock 10 ML Syringe IV ×3 (08:04→20:17)
[2023-09-20] MEDS: Vancomycin HCl 750 MG in 0.9% Normal Saline (250mL Bag) 250 ML 250 MG IV (10:42)
[2023-09-20] MEDS: Insulin Glargine-YFGN 100 UNIT/ML Pen SC (10:43)
[2023-09-20] MEDS: Insulin Lispro 100 UNIT/ML INSULN.PEN SC ×2 (11:59→16:22)
[2023-09-20 12:19] LABS: Bedside Glucose 195 mg/dL (74-106)
--- NOTE | 2023-09-20 13:09 | PN_ITS ---
Subjective Subjective Patient seen resting in bed this afternoon resting. She states Julian Auterras just finished fitting for prosthesis. She does have stump signalman applied to the left lower extremity. Patient states she is still sore from surgery. Denies constitutional symptoms. Denies further complaints. Objective Data Objective Data Vital Signs: Vital Signs Temp Pulse Resp BP Pulse Ox O2 Del Method O2 Flow Rate 97.2 F L 63 16 111/62 98 Room Air 2 09/20/23 07:46 09/20/23 07:59 09/20/23 07:46 09/20/23 07:46 09/20/23 07:46 09/20/23 07:46 09/19/23 21:36 Oxygen Flow Rate (L/min) 2 Oxygen Delivery Method Room Air Weight: 98.8 kg Body Mass Index (BMI) 32.6 Intake & Output: Intake and Output for Last 24 Hours 09/18/23 09/19/23 09/20/23 23:59 23:59 23:59 Intake Total 705.0 / 705.0 775 / 775 1065.5 / 1065.5 Output Total 700 / 700 300 / 300 Balance 705.0 / 705.0 75 / 75 765.5 / 765.5 Lab / Micro Data 09/19/23 07:40 09/19/23 07:40 Labs: Laboratory Results - last 24 hr 09/19/23 17:55: POC Glucose 139 H 09/19/23 19:30: Random Vancomycin 19.3 H 09/19/23 21:09: POC Glucose 170 H 09/20/23 06:40: POC Glucose 105 09/20/23 11:57: POC Glucose 195 H Micro: Microbiology 09/17/23 19:16 Blood Culture (Wb) - Right Hand Blood Culture - Preliminary No growth in 48 hours. 09/17/23 18:55 Blood Culture (Wb) - Left Hand Blood Culture - Preliminary No growth in 48 hours. 09/17/23 18:44 Wound - Left Foot Gram Stain - Final 09/17/23 18:44 Wound - Left Foot Wound Culture - Final Escherichia coli Streptococcus dysgalactiae equ 09/17/23 18:44 Wound - Left Foot Anaerobic Culture - Preliminary Checking for anaerobes, further studies to follow. Physical Exam Const alert, oriented x3 and no apparent distress General Appearance: cooperative HEENT normocephalic Eyes General Eye: normal appearance of both eyes Neck General: normal visual inspection Lymph Lymphatic: no lymphadenopathy noted and no lymphedema noted Resp normal respiratory effort Cardio regular rate and regular rhythm Extremity Extremity Narrative: DP and PT pulses weakly palpable to the left lower extremity. There is delayed capillary fill time to digits 1 through 4 of the left foot. Digit 5 demonstrates absence of capillary fill and is cold to palpation. Neuro: Decreased protective sensation to the foot at greater than 2 sites consistent with diabetic peripheral polyneuropathy. Dermatological: BKA left lower extremity with intact sutures. No signs of infection. Stump signalman applied. Musculoskeletal: BKA left lower extremity Skin no rashes or lesions noted and no jaundice Neuro moves all extremities Assessment & Plan Assessment/Plan (1) Diabetes mellitus with diabetic polyneuropathy: QUALIFIERS: Diabetes mellitus type: type 2 Diabetes mellitus superintendent container terminal insulin use: without custodial use Qualified Code(s): E11.42 - Type 2 diabetes mellitus with diabetic polyneuropathy (2) Cellulitis of left foot: (3) Abscess of left foot: (4) Non-pressure chronic ulcer of other part of left foot with necrosis of bone: (5) Below-knee amputation of left lower extremity: PLAN: Plan Patient seen and evaluated She is s/p BKA left lower extremity DOS: 09/18/2023. BKA left lower extremity with intact sutures to stump site. Distal stump appears healthy. No signs of infection. Stump signalman applied to left lower extremity. She just finished prosthesis measuring with [employer]. Patient currently on IV Vanco/Zosyn Imaging: Radiograph obtained of the left foot demonstrating diffuse swelling of the foot with soft tissue defect consistent with plantar wound to the first metatarsal head, soft tissue defect lateral to the fifth metatarsal communicating plantarly below fourth, third, second metatarsal extending proximally to the level of the navicular with soft tissue emphysema noted about the lateral fifth metatarsal extending medially to the fourth metatarsal. There is evidence of foreign body noted to the left foot plantar to the fourth and fifth metatarsal shafts appear to be consistent with metal wire. Medicine team currently following for medical management, they are greatly appreciated. Wound care nurse assisting in dressing changes, her assistance is appreciated. Vascular surgery following s/p BKA of left lower extremity She is doing well postsurgery and at this time podiatry to sign off. Doug Hager Jr. D.P.M. [facility] [phone]
--- NOTE | 2023-09-20 13:24 | PCM.PN.ID ---
Physical Exam Narrative Feeling ok, pain improved, no fever, no n/v/d. Const alert and no apparent distress General Appearance: cooperative Resp normal air movement and clear to auscultation bilaterally Cardio regular rate and regular rhythm GI soft to palpation, non-tender and non-distended Skin Skin Narrative: LLE wrapped ID ID: Route of nutrition/ use of supplements: [] Nutritional Intake: [] IV Site: [] Reyes Catheter: [] Assessment & Plan Assessment/Plan (1) Abscess of left foot: PLAN: BKA 09/18/[address] Hernandez. On vanc/zosyn. Wound cx with ecoli and strep so far. Now 47 s/p BKA. Will stop abx. Will follow (2) Diabetes mellitus with diabetic polyneuropathy: QUALIFIERS: Diabetes mellitus type: type 2 Diabetes mellitus halfway insulin use: without occupational medicine officer use Qualified Code(s): E11.42 - Type 2 diabetes mellitus with diabetic polyneuropathy
--- NOTE | 2023-09-20 13:47 | DCINST_ITS ---
Discharge Instructions Follow Up Care Test Results: Test results from this visit will be discussed in further detail at your follow- up appointment, if applicable. Discharge Plan Admission Admit Date/Time: 09/17/23 21:02 Attending Provider: Angel Pichardo Primary Care Provider: Care Physician,No Primary Consulting Providers: Mingo Reddy; Juan Manuel Nathan; Neptali Hernandez; Neptali Recinos Discharge Orders/Prescriptions Prescriptions: No Action atorvastatin 40 mg tablet 40 mg PO DAILY bupropion HCl 150 mg tablet extended release 24 hr 150 mg PO DAILY gabapentin 600 mg tablet 600 mg PO BID venlafaxine 75 mg tablet 75 mg PO BREAKFAST Rx Instructions: TAKE ONE TABLET (75MG) BY MOUTH ONCE DAILY IN THE MORNING AND TAKE TWO TABLETS (150MG) ONCE EVERY EVENING FOR A TOTAL DAILY DOSE OF 225MG. oxybutynin chloride 5 mg tablet 5 mg PO DAILY losartan 100 mg tablet 100 mg PO DAILY metformin 500 mg tablet extended release 24 hr 500 mg PO BIDCM fluticasone propionate 110 mcg/actuation HFA aerosol inhaler 1 puff INHALATION BID metoprolol tartrate 75 mg tablet 75 mg PO BID aspirin 81 mg tablet,delayed release (DR/EC) 81 mg PO DAILY venlafaxine 75 mg tablet 150 mg PO QPM Rx Instructions: TAKE ONE TABLET (75MG) BY MOUTH ONCE DAILY IN THE MORNING AND TAKE TWO TABLETS (150MG) ONCE EVERY EVENING FOR A TOTAL DAILY DOSE OF 225MG. levothyroxine [Synthroid] 50 mcg tablet 50 mcg PO DAILY albuterol sulfate 90 mcg/actuation HFA aerosol inhaler 2 puff INHALATION Q4H PRN (Reason: WHEEZING/SOB) Patient Comments: INHALE 2 PUFFS EVERY 4 HOURS NEEDED FOR WHEEZING or SHORTNESS OF BREATH Referrals / Follow Up: NOT,DEFINED [Non-Staff] - Care Physician,No Primary [Primary Care Provider] -
--- NOTE | 2023-09-20 14:15 | CASEMGMT ---
Addendum entered by Rianna Abdi 09/20/23 16:03: Patient was provided a list of HHC providers including quality and resource use data and consistent with the patient?s preferred geographic region, medical needs, and insurance network were provided from the [employer] Guide. Pt to review and AROLDO BIANCHI will check back tomorrow on choices for HHC. Pt provided with a rx for BGM at this time. Pt denies any needs. Original Note: RN ARIAS into pt room, pt states she wants to go home and she is open to having HHC. Julian Timmons saw her today. Pt states she is not ready for dc as she uses a waterbed at home and she needs to find alternative sleeping arrangements. Updated hospitalist and plan for dc tomorrow. Pt is aware.
--- NOTE | 2023-09-20 16:19 | PN.HOSP_ITS ---
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, left lower leg, initial encounter (09/17/23) Objective Data Objective Data Vital Signs: Vital Signs Temp Pulse Resp BP Pulse Ox O2 Del Method O2 Flow Rate 98.1 F 70 18 108/55 L 96 Room Air 2 09/20/23 14:18 09/20/23 14:18 09/20/23 14:18 09/20/23 14:18 09/20/23 14:18 09/20/23 14:18 09/19/23 21:36 Oxygen Flow Rate (L/min) 2 Oxygen Delivery Method Room Air Weight: 217 lb 13.067 oz Body Mass Index (BMI) 32.6 Intake & Output: Intake and Output for Last 24 Hours 09/18/23 09/19/23 09/20/23 23:59 23:59 23:59 Intake Total 705.0 / 705.0 775 / 775 1100.0 / 1100.0 Output Total 700 / 700 300 / 300 Balance 705.0 / 705.0 75 / 75 800.0 / 800.0 Lab / Micro Data 09/19/23 07:40 09/19/23 07:40 Labs: Laboratory Results - last 24 hr 09/19/23 17:55: POC Glucose 139 H 09/19/23 19:30: Random Vancomycin 19.3 H 09/19/23 21:09: POC Glucose 170 H 09/20/23 06:40: POC Glucose 105 09/20/23 11:57: POC Glucose 195 H Micro: Microbiology 09/17/23 19:16 Blood Culture (Wb) - Right Hand Blood Culture - Preliminary No growth in 48 hours. 09/17/23 18:55 Blood Culture (Wb) - Left Hand Blood Culture - Preliminary No growth in 48 hours. 09/17/23 18:44 Wound - Left Foot Gram Stain - Final 09/17/23 18:44 Wound - Left Foot Wound Culture - Final Escherichia coli Streptococcus dysgalactiae equ 09/17/23 18:44 Wound - Left Foot Anaerobic Culture - Preliminary Checking for anaerobes, further studies to follow. Physical Exam Narrative Seen and examined. 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 No acute symptoms patient has occasional chronic cough. Patient refused for going to [facility]pc. Patient is states she still smokes cigarettes half pack per day. She was smoking 1.5 pack/day earlier during teenage and 20s. Physical exam general: Alert, Oriented x3, Cooperative HEENT: Atraumatic, PERRLA, EOMI, Normocephalic Oral: No Gingival or Mucosal Lesions/ Ulcerations Neck: Supple, No JVD, Negative Carotid Bruits Lungs: Air entry diminished in bilateral lung bases. Bilateral fine expiratory rhonchi. Cardiovascular: Regular rate, Regular Rhythm, Normal S1, Normal S2, No murmurs Abdomen: Bowel Sounds Present, Soft, Non Tender, Non-Distended : No renal angle tenderness. No suprapubic tenderness. Extremities: Left BKA. No seepage or bleeding or drainage. Dressing is dry. No edema, Capillary Refill Less than 3 Seconds Skin: No rashes, No breakdown Musculoskeletal: No Tenderness to Palpation of Joints or Extremities ROM restricted of left lower extremity. Neurological: Cranial nerves II-XII grossly intact, DTR 2+/4. No acute focal neurological deficit. Psych/Mental Status: Flat affect. Assessment & Plan Assessment/Plan (1) Non-pressure chronic ulcer of other part of left foot with necrosis of bone: PLAN: Severe diabetic foot wound with SQ emphysema. Ulceration from head of 1st MTP, lateral 5th metatarsal and plantar midfoot to the level of the navicular bone. Plantar tissue profoundly compromised. Not amenable to partial amputation given high risk for failure, therefore BKA is planned. ESR >130, CRP 135. MRI ordered. Check JADE Consults to podiatry, ID and vascular surgery. Abx with vancomycin and pip/tazo. Patient hadLeft BKA surgery on 09/18/2023. Wound culture shows E. coli and Streptococcus. Patient had antibiotic therefore ID decided to discontinue it. Plan for discharge tomorrow. Extremity Arterial Study 09/18/23 08:50 Interpretation Summary Right JADE 0.68,moderate arterial insufficiency. Doppler/PVR waveforms and segmental pressures reveal czwyo-binqs-cyyugdsz femoral disease. Left JADE 0.7, moderate arterial insufficiency. Doppler/PVR waveforms and segmental pressures reveal welqf-rgwup-jtxpwalo femoral, distal SFA/popliteal disease Lower Extremity MRI 09/18/23 20:13 IMPRESSION: No evidence of osteomyelitis. Osteochondral injury of the talar dome. Heel spurs. (2) Diabetes mellitus with diabetic polyneuropathy: QUALIFIERS: Diabetes mellitus type: type 2 Diabetes mellitus fci insulin use: without dedicated intermodal truck driver use Qualified Code(s): E11.42 - Type 2 diabetes mellitus with diabetic polyneuropathy PLAN: uncontrolled. A1c 6.9%. Glucose is between 1 47-1 52. PLAN: Plan Chronic conditions: * Ongoing tobacco abuse adding to the pathology of #1 and #2 - Tobacco cessation will be strongly encouraged with nicotine patch offered to control cravings. * Positive family history of peripheral vascular disease in her mother who underwent a left lower extremity amputation as well - Noted. * Essential hypertension - Continue home medications as previous. Give IV hydralazine as needed for systolic blood pressure greater than 160 mmHg. * Hyperlipidemia - Continue statin as previous. DVT prophylaxis -Lovenox 40 mg subcu daily. Disposition: TBD. Patient may require SNF post-operatively. DW patient's at bedside. Charges/Coding Visit Charges Inpatient E&M: 41964 Subs Hosp L2
[2023-09-20 16:42] LABS: Bedside Glucose 221 mg/dL (74-106)
[2023-09-20] MEDS: HYDROmorphone 1 MG/ML Syringe IV (20:17)
[2023-09-20] MEDS: Venlafaxine HCl 75 MG Tablet 150 MG PO (22:18)
[2023-09-20] MEDS: Atorvastatin Calcium 40 MG Tablet PO (22:18)
[2023-09-20 23:06] LABS: Bedside Glucose 137 mg/dL (74-106)
[2023-09-21] VITALS (9 sets, daily range): BP systolic 112–146; BP diastolic 53–99; PULSE 64–77; RESP 16–18; TEMP 36.3–36.9; O2SAT 95–100
[2023-09-21] MEDS: oxyCODONE 5 MG Tablet PO ×2 (03:35→20:08)
[2023-09-21] MEDS: Acetaminophen 500 MG Tablet 1000 MG PO ×3 (06:23→21:20)
[2023-09-21] MEDS: Budesonide Respules 0.5 MG/2 ML AMPUL.NEB. INHALATION ×2 (07:24→19:24)
--- NOTE | 2023-09-21 07:33 | DCINST_ITS ---
Discharge Instructions Follow Up Care Test Results: Test results from this visit will be discussed in further detail at your follow- up appointment, if applicable. Discharge Plan Admission Admit Date/Time: 09/17/23 21:02 Primary Reason for Your Visit: Left diabetic foot status post BKA Attending Provider: Angel Pichardo Primary Care Provider: Care Physician,No Primary Consulting Providers: Mingo Reddy; Juan Manuel Nathan; Neptali Hernandez; Neptali Recinos Discharge Orders/Prescriptions Prescriptions: New acetaminophen 500 mg Tablet 1,000 mg PO Q8 PRNQty: 0 0RF Rx Instructions: For mild to moderate pain. oxycodone 5 mg Tablet 2.5 - 5 mg PO Q4H PRN PRN (Reason: Pain Score 4-10) 5 Days Qty: 10 0RF Rx Instructions: 2.5 mg for moderate pain 5 mg for severe pain respectively. Eliquis 2.5 mg tablet 2.5 mg PO BID Qty: 60 0RF Rx Instructions: For DVT prophylaxis. glipizide 2.5 mg tablet 2.5 mg PO BID Qty: 60 2RF Rx Instructions: Hold if glucose less than 130 mg/dl Continued atorvastatin 40 mg tablet 40 mg PO DAILY bupropion HCl 150 mg tablet extended release 24 hr 150 mg PO DAILY gabapentin 600 mg tablet 600 mg PO BID venlafaxine 75 mg tablet 75 mg PO BREAKFAST Rx Instructions: TAKE ONE TABLET (75MG) BY MOUTH ONCE DAILY IN THE MORNING AND TAKE TWO TABLETS (150MG) ONCE EVERY EVENING FOR A TOTAL DAILY DOSE OF 225MG. oxybutynin chloride 5 mg tablet 5 mg PO DAILY losartan 100 mg tablet 100 mg PO DAILY metformin 500 mg tablet extended release 24 hr 500 mg PO BIDCM fluticasone propionate 110 mcg/actuation HFA aerosol inhaler 1 puff INHALATION BID metoprolol tartrate 75 mg tablet 75 mg PO BID venlafaxine 75 mg tablet 150 mg PO QPM Rx Instructions: TAKE ONE TABLET (75MG) BY MOUTH ONCE DAILY IN THE MORNING AND TAKE TWO TABLETS (150MG) ONCE EVERY EVENING FOR A TOTAL DAILY DOSE OF 225MG. levothyroxine [Synthroid] 50 mcg tablet 50 mcg PO DAILY albuterol sulfate 90 mcg/actuation HFA aerosol inhaler 2 puff INHALATION Q4H PRN (Reason: WHEEZING/SOB) Patient Comments: INHALE 2 PUFFS EVERY 4 HOURS NEEDED FOR WHEEZING or SHORTNESS OF BREATH Held aspirin 81 mg tablet,delayed release (DR/EC) 81 mg PO DAILY Hold Instructions: Hold it while taking Eliquis. Referrals / Follow Up: Care Physician,No Primary [Primary Care Provider] - Within 2 Weeks (For optimal control of diabetes mellitus and blood pressure) NOT,DEFINED [Non-Staff] - Neptali Hernandez MD [Med Staff - Active Staff] - Within 1 Month (for PAD) Doug Hager DPM [Med Staff - Active Staff] - Within 1 Week (Follow-up for left BKA stump. Follow-up in wound clinic.) Disposition Disposition (needs filled in before D/C Order can be placed): Home Health Service
--- NOTE | 2023-09-21 08:27 | DS.PCM_ITS ---
Providers Date of Admission: 09/17/23 Date of Discharge: 09/21/23 Primary Care Physician: Domitila Primary Care Phys Consultations 09/17/23 20:10 Consult: Onc/Wound/mechanical systems engineer Routine Comment: Reason for Consult:: LEft DFU with Gangrene. Comments:: Please see in the AM on rounds. Plans for Left BKA. 09/17/23 20:12 Consult: Infectious Disease Routine Consulting Provider: Juan Manuel Nathan Reason for Consult: Left DFU with Gangrene. 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 EMERGENT Consult: No MD Notified: Yes Date Notified: 09/18/23 Time Notified: 07:58 Method of Notification: Text Reason For Visit: DFU WITH GANGRENE Diagnosis Discharge Diagnosis (1) Non-pressure chronic ulcer of other part of left foot with necrosis of bone: Status: Chronic Code(s): L97.524 - Non-pressure chronic ulcer of other part of left foot with necrosis of bone Plan: 62-year-old female was admitted with left foot diabetic nonpressure chronic ulcer with abscess formation and cellulitis with necrosis to the bone and clinical evidence of dry gangrene with foul-smelling dark and purulent drainage with leukocytosis 15.8 thousand. Admission. She had previous diabetic foot ulcer at plantar first metatarsal head and midfoot that had previously healed but recently has not seen manual writer or taking care of the ulcer. 1. Severe diabetic foot wound with SQ emphysema. Ulceration from head of 1st MTP, lateral 5th metatarsal and plantar midfoot to the level of the navicular bone. Plantar tissue profoundly compromised. Not amenable to partial amputation given high risk for failure, therefore BKA is planned. ESR >130, CRP 135. MRI ordered. Check JADE Consults to podiatry, ID and vascular surgery. Abx with vancomycin and pip/tazo. Patient hadLeft BKA surgery on 09/18/2023. Wound culture shows E. coli and Streptococcus. Extremity Arterial Study 09/18/23 08:50 Interpretation Summary Right JADE 0.68,moderate arterial insufficiency. Doppler/PVR waveforms and segmental pressures reveal kfqgl-sgwyh-nbjqijwh femoral disease. Left JADE 0.7, moderate arterial insufficiency. Doppler/PVR waveforms and segment al pressures reveal mhepi-rhscy-iruuzjjr femoral, distal SFA/popliteal disease Lower Extremity MRI 09/18/23 20:13 IMPRESSION: No evidence of osteomyelitis. Osteochondral injury of the talar dome. Heel spurs. Patient was seen by the ID. No further need of antibiotic as she cannot take it. Patient is being discharged home today. Follow-up instructions completed with manual writer and vascular surgeon (2) Diabetes mellitus with diabetic polyneuropathy: Status: Acute Code(s): E11.42 - Type 2 diabetes mellitus with diabetic polyneuropathy Qualifiers: Diabetes mellitus terminal make up operator insulin use: without alf use Diabetes mellitus type: type 2 Qualified Code(s): E11.42 - Type 2 diabetes mellitus with diabetic polyneuropathy Plan: uncontrolled. A1c 6.9%. Glucose is between 1 47-1 52. Glucose is reasonably controlled. Patient on metformin at home and has sufficient refills. Prescription for glipizide 2.5 mg twice daily given with holding parameters. Plan Chronic conditions: * Ongoing tobacco abuse adding to the pathology of #1 and #2 - Tobacco cessation will be strongly encouraged with nicotine patch offered to control cravings. Patient has mild sore throat with rescue voice/laryngitis. I asked the patient to test for flu and COVID but she denied it. She had flu vaccine and COVID-vaccine in the past. * Positive family history of peripheral vascular disease in her mother who unde rwent a left lower extremity amputation as well - Noted. * Essential hypertension - Continue home medications as previous. Give IV hydralazine as needed for systolic blood pressure greater than 160 mmHg. * Hyperlipidemia - Continue statin as previous. DVT prophylaxis -Lovenox 40 mg subcu daily. Toya patient declined for residential but agreed for home health aide. Discharge medication reconciliation done. Discharge follow-up instructions completed. Discharge process discussed with the patient and all questions were answered to patient's satisfaction. Follow with PCP in 1 to 2 weeks Total time spent, exact 35 minutes on discharge meds reconciliation, examination, coordination of care with nurses and ancillary staff, review of imaging and blood test and discussion with the patient on follow-up instructions. Medications at Discharge Home Medications albuterol sulfate 90 mcg/actuation aerosol inhaler 2 puff inhalation Q4H PRN WHEEZING/SOB 09/17/23 aspirin 81 mg tablet,delayed release 81 mg PO DAILY HEART HEALTH 09/17/23 atorvastatin 40 mg tablet 40 mg PO DAILY CHOLESTEROL 09/17/23 bupropion HCl 150 mg 24 hr tablet, extended release 150 mg PO DAILY DEPRESSION 09/17/23 fluticasone propionate 110 mcg/actuation HFA aerosol inhaler 1 puff inhalation BID ASTHMA 09/17/23 gabapentin 600 mg tablet 600 mg PO BID NEUROPATHY 09/17/23 levothyroxine 50 mcg tablet (Synthroid) 50 mcg PO DAILY THYROID 09/17/23 losartan 100 mg tablet 100 mg PO DAILY BLOOD PRESSURE 09/17/23 metformin 500 mg tablet,extended release 24 hr 500 mg PO BIDCM DIABETES 09/17/23 metoprolol tartrate 75 mg tablet 75 mg PO BID BLOOD PRESSURE 09/17/23 oxybutynin chloride 5 mg tablet 5 mg PO DAILY OVERACTIVE BLADDER 09/17/23 venlafaxine 75 mg tablet 75 mg PO BREAKFAST DEPRESSION 09/17/23 venlafaxine 75 mg tablet 150 mg PO QPM DEPRESSION 09/17/23 acetaminophen 500 mg tablet 1,000 mg (2 x 500 mg) PO Q8 PRN #0 tabs 09/21/23 apixaban 2.5 mg tablet (Eliquis) 2.5 mg PO BID #60 tabs 09/21/23 glipizide 2.5 mg tablet 2.5 mg PO BID #60 tabs 09/21/23 oxycodone 5 mg tablet 2.5 - 5 mg (0.5 - 1 x 5 mg) PO Q4H PRN PRN Pain Score 4-10 5 days #10 tabs 09/21/23 Physical Exam Narrative Seen and examined. 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 Mild deep raspy voice. No acute symptoms patient has occasional chronic cough. Patient refused for going to residential. Patient is states she still smokes cigarettes half pack per day. She was smoking 1.5 pack/day earlier during teenage and 20s. Physical exam general: Alert, Oriented x3, Cooperative HEENT: Atraumatic, PERRLA, EOMI, Normocephalic Oral: No Gingival or Mucosal Lesions/ Ulcerations Neck: Supple, No JVD, Negative Carotid Bruits Lungs: Air entry diminished in bilateral lung bases. Bilateral fine expiratory rhonchi. Cardiovascular: Regular rate, Regular Rhythm, Normal S1, Normal S2, No murmurs Abdomen: Bowel Sounds Present, Soft, Non Tender, Non-Distended : No renal angle tenderness. No suprapubic tenderness. Extremities: Left BKA. No seepage or bleeding or drainage. Dressing is dry. No edema, Capillary Refill Less than 3 Seconds Skin: No rashes, No breakdown Musculoskeletal: No Tenderness to Palpation of Joints or Extremities ROM restricted of left lower extremity. Neurological: Cranial nerves II-XII grossly intact, DTR 2+/4. No acute focal neurological deficit. Psych/Mental Status: Flat affect. Weight / BMI Weight Weight: 217 lb 13.067 oz Body Mass Index (BMI) 32.6 ABG / Lab / Microbiology Data 09/19/23 07:40 09/19/23 07:40 Laboratory: Laboratory Results - last 24 hr 09/20/23 11:57: POC Glucose 195 H 09/20/23 16:20: POC Glucose 221 H 09/20/23 22:16: POC Glucose 137 H Microbiology: Microbiology 09/17/23 19:16 Blood Culture (Wb) - Right Hand Blood Culture - Preliminary No growth in 48 hours. 09/17/23 18:55 Blood Culture (Wb) - Left Hand Blood Culture - Preliminary No growth in 48 hours. 09/17/23 18:44 Wound - Left Foot Gram Stain - Final 09/17/23 18:44 Wound - Left Foot Wound Culture - Final Escherichia coli Streptococcus dysgalactiae equ 09/17/23 18:44 Wound - Left Foot Anaerobic Culture - Preliminary Checking for anaerobes, further studies to follow. Meaningful Use Info Meaningful Use Diagnoses (Choose all that apply): None applicable Discharge Plan Admission Admit Date/Time: 09/17/23 21:02 Primary Reason for Your Visit: Left diabetic foot status post BKA Attending Provider: Angel Pichardo Primary Care Provider: Care Physician,No Primary Consulting Providers: Mingo Reddy; Juan Manuel Nathan; Neptali Hernandez; Neptali Recinos Discharge Orders/Prescriptions Prescriptions: New acetaminophen 500 mg Tablet 1,000 mg PO Q8 PRNQty: 0 0RF Rx Instructions: For mild to moderate pain. oxycodone 5 mg Tablet 2.5 - 5 mg PO Q4H PRN PRN (Reason: Pain Score 4-10) 5 Days Qty: 10 0RF Rx Instructions: 2.5 mg for moderate pain 5 mg for severe pain respectively. Eliquis 2.5 mg tablet 2.5 mg PO BID Qty: 60 0RF Rx Instructions: For DVT prophylaxis. glipizide 2.5 mg tablet 2.5 mg PO BID Qty: 60 2RF Rx Instructions: Hold if glucose less than 130 mg/dl Continued atorvastatin 40 mg tablet 40 mg PO DAILY bupropion HCl 150 mg tablet extended release 24 hr 150 mg PO DAILY gabapentin 600 mg tablet 600 mg PO BID venlafaxine 75 mg tablet 75 mg PO BREAKFAST Rx Instructions: TAKE ONE TABLET (75MG) BY MOUTH ONCE DAILY IN THE MORNING AND TAKE TWO TABLETS (150MG) ONCE EVERY EVENING FOR A TOTAL DAILY DOSE OF 225MG. oxybutynin chloride 5 mg tablet 5 mg PO DAILY losartan 100 mg tablet 100 mg PO DAILY metformin 500 mg tablet extended release 24 hr 500 mg PO BIDCM fluticasone propionate 110 mcg/actuation HFA aerosol inhaler 1 puff INHALATION BID metoprolol tartrate 75 mg tablet 75 mg PO BID venlafaxine 75 mg tablet 150 mg PO QPM Rx Instructions: TAKE ONE TABLET (75MG) BY MOUTH ONCE DAILY IN THE MORNING AND TAKE TWO TABLETS (150MG) ONCE EVERY EVENING FOR A TOTAL DAILY DOSE OF 225MG. levothyroxine [Synthroid] 50 mcg tablet 50 mcg PO DAILY albuterol sulfate 90 mcg/actuation HFA aerosol inhaler 2 puff INHALATION Q4H PRN (Reason: WHEEZING/SOB) Patient Comments: INHALE 2 PUFFS EVERY 4 HOURS NEEDED FOR WHEEZING or SHORTNESS OF BREATH Held aspirin 81 mg tablet,delayed release (DR/EC) 81 mg PO DAILY Hold Instructions: Hold it while taking Eliquis. Referrals / Follow Up: Neptali Hernandez MD [Med Staff - Active Staff] - Within 1 Month (for PAD) Doug Hager DPM [Med Staff - Active Staff] - Within 1 Week (Follow-up for left BKA stump. Follow-up in wound clinic.) Care Physician,No Primary [Primary Care Provider] - Within 2 Weeks (For optimal control of diabetes mellitus and blood pressure) NOT,DEFINED [Non-Staff] - Disposition Disposition (needs filled in before D/C Order can be placed): Home Health Service Charges/Coding Visit Charges Inpatient E&M: 96177 Disch Hosp >30min
[2023-09-21] MEDS: Oxybutynin 5 MG Tablet PO (09:10)
[2023-09-21] MEDS: Aspirin E.C. 81 MG Tablet PO (09:10)
[2023-09-21] MEDS: Losartan Potassium 100 MG Tablet PO (09:10)
[2023-09-21] MEDS: Gabapentin 600 MG Tablet PO ×2 (09:10→21:18)
[2023-09-21] MEDS: Metoprolol Tartrate 25 MG Tablet 75 MG PO ×2 (09:10→21:19)
[2023-09-21] MEDS: Venlafaxine HCl 75 MG Tablet PO (09:10)
[2023-09-21] MEDS: buPROPion (XL) 150 MG TABLET.XL PO (09:11)
[2023-09-21] MEDS: Enoxaparin 40 MG/0.4 ML Syringe SC (09:11)
[2023-09-21 09:33] LABS: Bedside Glucose 113 mg/dL (74-106)
--- NOTE | 2023-09-21 10:10 | CASEMGMT ---
Addendum entered by Rianna Abdi 09/21/23 14:53: 1344- AROLDO BIANCHI updated by therapy that pt is not ready to dc home. States pt is now agreeable to discussing SNF. Updated SW at this time. Original Note: AROLDO BIANCHI into pt room, pt has chosen [facility]. Noted that pt does not currently have a PCP. AROLDO BIANCHI back into pt room, pt states her doctor left unexpectedly and they are trying to get her into another doctor in the practice. Pt has an appt in January. Pt doctor was . Pt aware that HHC can not be set up at this time and AROLDO BIANCHI will call her doctor's office on Saturday to see if another physician is willing to cover the HHC. She denies further homegoing needs and is still wants to go home.
[2023-09-21] MEDS: Insulin Lispro 100 UNIT/ML INSULN.PEN SC ×3 (11:52→21:18)
[2023-09-21 11:59] LABS: Bedside Glucose 288 mg/dL (74-106)
--- NOTE | 2023-09-21 13:58 | PN.HOSP_ITS ---
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, left lower leg, initial encounter (09/17/23) Objective Data Objective Data Vital Signs: Vital Signs Temp Pulse Resp BP Pulse Ox O2 Del Method O2 Flow Rate 97.6 F L 64 18 119/63 95 Room Air 1 09/21/23 09:03 09/21/23 09:10 09/21/23 09:03 09/21/23 09:03 09/21/23 09:03 09/21/23 09:03 09/21/23 07:27 Oxygen Flow Rate (L/min) 1 Oxygen Delivery Method Room Air Weight: 217 lb 13.067 oz Body Mass Index (BMI) 32.6 Intake & Output: Intake and Output for Last 24 Hours 09/19/23 09/20/23 09/21/23 23:59 23:59 23:59 Intake Total 775 / 775 1600.0 / 1600.0 300 / 300 Output Total 700 / 700 800 / 800 400 / 400 Balance 75 / 75 800.0 / 800.0 -100 / -100 Lab / Micro Data 09/19/23 07:40 09/19/23 07:40 Labs: Laboratory Results - last 24 hr 09/20/23 16:20: POC Glucose 221 H 09/20/23 22:16: POC Glucose 137 H 09/21/23 06:23: POC Glucose 113 H 09/21/23 11:41: POC Glucose 288 H Micro: Microbiology 09/17/23 19:16 Blood Culture (Wb) - Right Hand Blood Culture - Preliminary No growth in 48 hours. 09/17/23 18:55 Blood Culture (Wb) - Left Hand Blood Culture - Preliminary No growth in 48 hours. 09/17/23 18:44 Wound - Left Foot Gram Stain - Final 09/17/23 18:44 Wound - Left Foot Wound Culture - Final Escherichia coli Streptococcus dysgalactiae equ 09/17/23 18:44 Wound - Left Foot Anaerobic Culture - Preliminary Checking for anaerobes, further studies to follow. Physical Exam Narrative Seen and examined. 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 Mild deep raspy voice. No acute symptoms patient has occasional chronic cough. Patient refused for going to senior living. As per case that she agreed now after that. Discharged instructions in summary. Patient is states she still smokes cigarettes half pack per day. She was smokin g 1.5 pack/day earlier during teenage and 20s. Physical exam general: Alert, Oriented x3, Cooperative HEENT: Atraumatic, PERRLA, EOMI, Normocephalic Oral: No Gingival or Mucosal Lesions/ Ulcerations Neck: Supple, No JVD, Negative Carotid Bruits Lungs: Air entry diminished in bilateral lung bases. Bilateral fine expiratory rhonchi. Cardiovascular: Regular rate, Regular Rhythm, Normal S1, Normal S2, No murmurs Abdomen: Bowel Sounds Present, Soft, Non Tender, Non-Distended : No renal angle tenderness. No suprapubic tenderness. Extremities: Left BKA. No seepage or bleeding or drainage. Dressing is dry. No edema, Capillary Refill Less than 3 Seconds Skin: No rashes, No breakdown Musculoskeletal: No Tenderness to Palpation of Joints or Extremities ROM restricted of left lower extremity. Neurological: Cranial nerves II-XII grossly intact, DTR 2+/4. No acute focal neurological deficit. Psych/Mental Status: Flat affect. Assessment & Plan Assessment/Plan (1) Non-pressure chronic ulcer of other part of left foot with necrosis of bone: PLAN: 62-year-old female was admitted with left foot diabetic nonpressure chronic ulcer with abscess formation and cellulitis with necrosis to the bone and clinical evidence of dry gangrene with foul-smelling dark and purulent drainage with leukocytosis 15.8 thousand. Admission. She had previous diabetic foot ulcer at plantar first metatarsal head and midfoot that had previously healed but recently has not seen binding nicker or taking care of the ulcer. 1. Severe diabetic foot wound with SQ emphysema. Ulceration from head of 1st MTP, lateral 5th metatarsal and plantar midfoot to the level of the navicular bone. Plantar tissue profoundly compromised. Not amenable to partial amputation given high risk for failure, therefore BKA is planned. ESR >130, CRP 135. MRI ordered. Check JADE Consults to podiatry, ID and vascular surgery. Abx with vancomycin and pip/tazo. Patient hadLeft BKA surgery on 09/18/2023. Wound culture shows E. coli and Streptococcus. 09/21: Patient was seen by the ID. No further need of antibiotic as she cannot take it. Earlier patient said she wants to go home for last 3 days and now she is agreeable for going to senior living therefore discharge instructions summary canceled. Extremity Arterial Study 09/18/23 08:50 Interpretation Summary Right JADE 0.68,moderate arterial insufficiency. Doppler/PVR waveforms and segmental pressures reveal wdvwy-rhvfv-heivvyzt femoral disease. Left JADE 0.7, moderate arterial insufficiency. Doppler/PVR waveforms and segmental pressures reveal rgmgh-jyikr-ssbusqtu femoral, distal SFA/popliteal disease Lower Extremity MRI 09/18/23 20:13 IMPRESSION: No evidence of osteomyelitis. Osteochondral injury of the talar dome. Heel spurs. (2) Diabetes mellitus with diabetic polyneuropathy: QUALIFIERS: Diabetes mellitus type: type 2 Diabetes mellitus intermodal owner operator truck driver insulin use: without nursing home use Qualified Code(s): E11.42 - Type 2 diabetes mellitus with diabetic polyneuropathy PLAN: uncontrolled. A1c 6.9%. Glucose is between 1 47-1 52. Glucose is reasonably controlled. Patient on metformin at home and has sufficient refills. Prescription for glipizide 2.5 mg twice daily given with holding parameters. PLAN: Plan Chronic conditions: * Ongoing tobacco abuse adding to the pathology of #1 and #2 - Tobacco cessation will be strongly encouraged with nicotine patch offered to control cravings. Patient has mild sore throat with rescue voice/laryngitis. I asked the patient to test for flu and COVID but she denied it. She had flu vaccine and COVID-vaccine in the past. * Positive family history of peripheral vascular disease in her mother who underwent a left lower extremity amputation as well - Noted. * Essential hypertension - Continue home medications as previous. Give IV hydralazine as needed for systolic blood pressure greater than 160 mmHg. * Hyperlipidemia - Continue statin as previous. DVT prophylaxis -Lovenox 40 mg subcu daily. Toya patient declined for senior living but agreed for home health aide. Discharge medication reconciliation done. Discharge follow-up instructions completed. Discharge process discussed with the patient and all questions were answered to patient's satisfaction. Follow with PCP in 1 to 2 weeks Total time spent, exact 35 minutes on discharge meds reconciliation, examination, coordination of care with nurses and ancillary staff, review of imaging and blood test and discussion with the patient on follow-up instructions. Charges/Coding Addendum Addendum: Please cancel the discharge summary. Visit Charges Inpatient E&M: 52425 Subs Hosp L2
--- NOTE | 2023-09-21 15:27 | CASEMGMT ---
Social Work SW received notification that patient is recommended for SNF. SW introduced self and role and patient agreeable to review SNF list. A SNF list of providers including quality and resource use data and consistent with patient?s preferred geographic region, medical needs, and insurance network were provided from the [facility] Guide. Patient review list and reports Just refer me to somewhere in [place]. SW reviewed [place] options and patient agreeable to [facility]
--- NOTE | 2023-09-21 15:30 | CASEMGMT ---
Social Work SW received notification that patient is recommended for SNF. SW introduced self and role and patient agreeable to review SNF list. A SNF list of providers including quality and resource use data and consistent with patient?s preferred geographic region, medical needs, and insurance network were provided from the [facility] Guide. Patient review list and reports Just refer me to somewhere in [place]. SW reviewed [place] options and patient agreeable to [facility]. SW to refer to both facilities via [facility]. Physician notified as patient was to discharge home today and will now be SNF. Roopa Madden EXCAVATION LABORER, GERIATRIC PHYSICIAN
[2023-09-21 17:08] LABS: Bedside Glucose 154 mg/dL (74-106)
[2023-09-21] MEDS: Venlafaxine HCl 75 MG Tablet 150 MG PO (21:19)
[2023-09-21] MEDS: Atorvastatin Calcium 40 MG Tablet PO (21:20)
[2023-09-21 21:42] LABS: Bedside Glucose 159 mg/dL (74-106)
[2023-09-22] VITALS (8 sets, daily range): BP systolic 107–141; BP diastolic 52–71; PULSE 64–68; RESP 16–19; TEMP 36.1–36.7; O2SAT 95–97
[2023-09-22] MEDS: Acetaminophen 500 MG Tablet 1000 MG PO ×3 (05:39→21:52)
[2023-09-22] MEDS: oxyCODONE 5 MG Tablet PO ×3 (06:03→21:51)
[2023-09-22 06:35] LABS: Bedside Glucose 108 mg/dL (74-106)
[2023-09-22] MEDS: Budesonide Respules 0.5 MG/2 ML AMPUL.NEB. INHALATION ×2 (07:26→19:13)
[2023-09-22] MEDS: Metoprolol Tartrate 25 MG Tablet 75 MG PO ×2 (09:37→21:56)
[2023-09-22] MEDS: Enoxaparin 40 MG/0.4 ML Syringe SC (09:37)
[2023-09-22] MEDS: buPROPion (XL) 150 MG TABLET.XL PO (09:37)
[2023-09-22] MEDS: Aspirin E.C. 81 MG Tablet PO (09:37)
[2023-09-22] MEDS: Gabapentin 600 MG Tablet PO ×2 (09:37→21:52)
[2023-09-22] MEDS: Venlafaxine HCl 75 MG Tablet PO (09:38)
[2023-09-22] MEDS: Oxybutynin 5 MG Tablet PO (09:38)
[2023-09-22] MEDS: Losartan Potassium 100 MG Tablet PO (09:38)
--- NOTE | 2023-09-22 09:48 | PN.HOSP_ITS ---
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, left lower leg, initial encounter (09/17/23) Objective Data Objective Data Vital Signs: Vital Signs Temp Pulse Resp BP Pulse Ox O2 Del Method O2 Flow Rate 97.7 F L 64 18 107/57 L 97 Room Air 1 09/22/23 09:32 09/22/23 09:37 09/22/23 09:32 09/22/23 09:32 09/22/23 09:32 09/22/23 09:32 09/21/23 07:27 Oxygen Flow Rate (L/min) 1 Oxygen Delivery Method Room Air Weight: 217 lb 13.067 oz Body Mass Index (BMI) 32.6 Intake & Output: Intake and Output for Last 24 Hours 09/20/23 09/21/23 09/22/23 23:59 23:59 23:59 Intake Total 1600.0 / 1600.0 600 / 600 200 / 200 Output Total 800 / 800 400 / 400 Balance 800.0 / 800.0 200 / 200 200 / 200 Lab / Micro Data 09/19/23 07:40 09/19/23 07:40 Labs: Laboratory Results - last 24 hr 09/18/23 13:00: Crossmatch See Detail 09/21/23 11:41: POC Glucose 288 H 09/21/23 16:40: POC Glucose 154 H 09/21/23 21:17: POC Glucose 159 H 09/22/23 05:41: POC Glucose 108 H Micro: Microbiology 09/17/23 19:16 Blood Culture (Wb) - Right Hand Blood Culture - Preliminary No growth in 48 hours. 09/17/23 18:55 Blood Culture (Wb) - Left Hand Blood Culture - Preliminary No growth in 48 hours. 09/17/23 18:44 Wound - Left Foot Gram Stain - Final 09/17/23 18:44 Wound - Left Foot Wound Culture - Final Escherichia coli Streptococcus dysgalactiae equ 09/17/23 18:44 Wound - Left Foot Anaerobic Culture - Preliminary Checking for anaerobes, further studies to follow. Physical Exam Narrative Seen and examined. 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 In the morning patient ready for home discharge after she has been refusing for care home for many days. 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 Now wanted to go to care home. occasional chronic cough. Patient is states she still smokes cigarettes half pack per day. She was smoking 1.5 pack/day earlier during teenage and 20s. Physical exam general: Alert, Oriented x3, Cooperative HEENT: Atraumatic, PERRLA, EOMI, Normocephalic Oral: No Gingival or Mucosal Lesions/ Ulcerations Neck: Supple, No JVD, Negative Carotid Bruits Lungs: Air entry diminished in bilateral lung bases. Bilateral fine expiratory rhonchi. No acute respiratory distress. Cardiovascular: Regular rate, Regular Rhythm, Normal S1, Normal S2, No murmurs Abdomen: Bowel Sounds Present, Soft, Non Tender, Non-Distended : No renal angle tenderness. No suprapubic tenderness. Extremities: Left BKA. No seepage or bleeding or drainage. Dressing is dry. No edema, Capillary Refill Less than 3 Seconds Skin: No rashes, No breakdown Musculoskeletal: No Tenderness to Palpation of Joints or Extremities ROM restricted of left lower extremity. Neurological: Cranial nerves II-XII grossly intact, DTR 2+/4. No acute focal neurological deficit. Psych/Mental Status: Flat affect. Assessment & Plan Assessment/Plan (1) Non-pressure chronic ulcer of other part of left foot with necrosis of bone: PLAN: 62-year-old female was admitted with left foot diabetic nonpressure chronic ulcer with abscess formation and cellulitis with necrosis to the bone and clinical evidence of dry gangrene with foul-smelling dark and purulent drainage with leukocytosis 15.8 thousand. Admission. She had previous diabetic foot ulcer at plantar first metatarsal head and midfoot that had previously healed but recently has not seen plant pathology teacher or taking care of the ulcer. 1. Severe diabetic foot wound with SQ emphysema. Ulceration from head of 1st MTP, lateral 5th metatarsal and plantar midfoot to the level of the navicular bone. Plantar tissue profoundly compromised. Not amenable to partial amputation given high risk for failure, therefore BKA is planned. ESR >130, CRP 135. MRI ordered. Check JADE Consults to podiatry, ID and vascular surgery. Abx with vancomycin and pip/tazo. Patient hadLeft BKA surgery on 09/18/2023. Wound culture shows E. coli and Streptococcus. 09/21: Patient was seen by the ID. No further need of antibiotic as she cannot take it. Earlier patient said she wants to go home for last 3 days and now she is agreeable for going to care home therefore discharge instructions summary canceled. 09/22: Pending pre-CERT and then discharged to care home. Podiatry still following for dressing change purposes. Extremity Arterial Study 09/18/23 08:50 Interpretation Summary Right JADE 0.68,moderate arterial insufficiency. Doppler/PVR waveforms and segmental pressures reveal hvcvp-fiygl-arcuuzxh femoral disease. Left JADE 0.7, moderate arterial insufficiency. Doppler/PVR waveforms and segmental pressures reveal mbohx-kbjvc-ewhutdmq femoral, distal SFA/popliteal disease Lower Extremity MRI 09/18/23 20:13 IMPRESSION: No evidence of osteomyelitis. Osteochondral injury of the talar dome. Heel spurs. (2) Diabetes mellitus with diabetic polyneuropathy: QUALIFIERS: Diabetes mellitus paper stacker insulin use: without retirement use Diabetes mellitus type: type 2 Qualified Code(s): E11.42 - Type 2 diabetes mellitus with diabetic polyneuropathy PLAN: uncontrolled. A1c 6.9%. Glucose is between 1 47-1 52. Glucose is reasonably controlled. Patient on metformin at home and has sufficient refills. Prescription for glipizide 2.5 mg twice daily given with holding parameters. Glucose is controlled. PLAN: Plan Chronic conditions: * Ongoing tobacco abuse adding to the pathology of #1 and #2 - Tobacco cessation will be strongly encouraged with nicotine patch offered to control cravings. Patient has mild sore throat with rescue voice/laryngitis. I asked the patient to test for flu and COVID but she denied it. She had flu vaccine and COVID-vaccine in the past. * Positive family history of peripheral vascular disease in her mother who underwent a left lower extremity amputation as well - Noted. * Essential hypertension - Continue home medications as previous. Give IV hydralazine as needed for systolic blood pressure greater than 160 mmHg. * Hyperlipidemia - Continue statin as previous. DVT prophylaxis -Lovenox 40 mg subcu daily. Toya patient declined for care home but agreed for home health aide. Discharge medication reconciliation done. Discharge follow-up instructions completed. Discharge process discussed with the patient and all questions were answered to patient's satisfaction. Follow with PCP in 1 to 2 weeks Total time spent, exact 35 minutes on discharge meds reconciliation, examination, coordination of care with nurses and ancillary staff, review of imaging and blood test and discussion with the patient on follow-up i nstructions. Charges/Coding Visit Charges Inpatient E&M: 29554 Subs Hosp L2
[2023-09-22] MEDS: Insulin Lispro 100 UNIT/ML INSULN.PEN SC ×3 (11:17→22:00)
[2023-09-22 16:42] LABS: Bedside Glucose 206 mg/dL (74-106)
[2023-09-22] MEDS: Venlafaxine HCl 75 MG Tablet 150 MG PO (21:53)
[2023-09-22] MEDS: Atorvastatin Calcium 40 MG Tablet PO (21:54)
[2023-09-22 22:07] LABS: Bedside Glucose 189 mg/dL (74-106)
[2023-09-22 22:20] LABS: Bedside Glucose 190 mg/dL (74-106)
[2023-09-23] VITALS (8 sets, daily range): BP systolic 112–136; BP diastolic 52–64; PULSE 60–76; RESP 16–18; TEMP 36.6–36.9; O2SAT 93–99
[2023-09-23] MEDS: Lactulose 20 GM/30 ML UDC 30 GM PO (06:11)
[2023-09-23] MEDS: Polyethylene Glycol 3350 17 GM PACKET PO (06:11)
[2023-09-23] MEDS: Acetaminophen 500 MG Tablet 1000 MG PO ×3 (06:12→21:49)
[2023-09-23 06:36] LABS: Bedside Glucose 114 mg/dL (74-106)
[2023-09-23] MEDS: Budesonide Respules 0.5 MG/2 ML AMPUL.NEB. INHALATION ×2 (07:41→20:17)
--- NOTE | 2023-09-23 08:29 | PCM.PN.HOSP ---
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 Objective Data Objective Data Vital Signs: Vital Signs Temp Pulse Resp BP Pulse Ox O2 Del Method O2 Flow Rate 36.6 C 60 16 112/64 99 Room Air 1 09/23/23 08:17 09/23/23 08:17 09/23/23 08:17 09/23/23 08:17 09/23/23 08:17 09/23/23 08:17 09/21/23 07:27 Oxygen Flow Rate (L/min) 1 Oxygen Delivery Method Room Air Weight: 98.8 kg Body Mass Index (BMI) 32.6 Intake & Output: Intake and Output for Last 24 Hours 09/21/23 09/22/23 09/23/23 23:59 23:59 23:59 Intake Total 600 / 600 550 / 550 Output Total 400 / 400 500 / 500 Balance 200 / 200 50 / 50 Lab / Micro Data 09/19/23 07:40 09/19/23 07:40 Labs: Laboratory Results - last 24 hr 09/22/23 11:16: POC Glucose 189 H 09/22/23 16:21: POC Glucose 206 H 09/22/23 22:00: POC Glucose 190 H 09/23/23 06:18: POC Glucose 114 H Micro: Microbiology 09/17/23 19:16 Blood Culture (Wb) - Right Hand Blood Culture - Final No growth in 5 days. 09/17/23 18:55 Blood Culture (Wb) - Left Hand Blood Culture - Final No growth in 5 days. 09/17/23 18:44 Wound - Left Foot Gram Stain - Final 09/17/23 18:44 Wound - Left Foot Wound Culture - Final Escherichia coli Streptococcus dysgalactiae equ 09/17/23 18:44 Wound - Left Foot Anaerobic Culture - Preliminary Checking for anaerobes, further studies to follow. Physical Exam Const alert and no apparent distress HEENT head/scalp atraumatic and moist oral mucous membranes Assessment & Plan Assessment/Plan (1) Abscess of left foot: PLAN: Plan (1) Non-pressure chronic ulcer of other part of left foot with necrosis of bone: PLAN: Severe diabetic foot wound with SQ emphysema. Ulceration from head of 1st MTP, lateral 5th metatarsal and plantar midfoot to the level of the navicular bone. Plantar tissue profoundly compromised. Not amenable to partial amputation given high risk for failure, therefore BKA is planned. ESR >130, CRP 135. Consults to podiatry, ID and vascular surgery. Abx dc'd by ID on 09/20 post BKA. Left BKA on 09/18. (2) Diabetes mellitus with diabetic polyneuropathy: PLAN: uncontrolled a1c 6.9 Currently on SSI Resume glipizide and metformin. PLAN: Plan Chronic conditions: Ongoing tobacco abuse adding to the pathology of #1 and #2 - Tobacco cessation will be strongly encouraged with nicotine patch offered to control cravings. Positive family history of peripheral vascular disease in her mother who underwent a left lower extremity amputation as well - Noted. Essential hypertension - Continue home medications as previous. Give IV hydralazine as needed for systolic blood pressure greater than 160 mmHg. Hyperlipidemia - Continue statin as previous. DVT prophylaxis -Lovenox 40 mg subcu daily. Disposition: to SNF pending insurance authorization. Charges/Coding Visit Charges Inpatient E&M: 85648 Subs Hosp L1
[2023-09-23] MEDS: Aspirin E.C. 81 MG Tablet PO (08:31)
[2023-09-23] MEDS: Venlafaxine HCl 75 MG Tablet PO (08:31)
--- NOTE | 2023-09-23 09:44 | WOUNDNOTE ---
wound photo: left stump
--- NOTE | 2023-09-23 09:45 | WOUNDNOTE ---
wound photo: left stump
[2023-09-23] MEDS: Losartan Potassium 100 MG Tablet PO (11:05)
[2023-09-23] MEDS: buPROPion (XL) 150 MG TABLET.XL PO (11:05)
[2023-09-23] MEDS: Oxybutynin 5 MG Tablet PO (11:05)
[2023-09-23] MEDS: Metoprolol Tartrate 25 MG Tablet 75 MG PO ×2 (11:06→21:49)
[2023-09-23] MEDS: Enoxaparin 40 MG/0.4 ML Syringe SC (11:06)
[2023-09-23] MEDS: Gabapentin 600 MG Tablet PO ×2 (11:09→21:53)
[2023-09-23] MEDS: Insulin Lispro 100 UNIT/ML INSULN.PEN SC ×2 (11:53→21:48)
--- NOTE | 2023-09-23 12:01 | CASEMGMT ---
Social Work SW spoke w/pt about where she prefers to go, SW let her know [facility] accepted and [facility] referral still pending. Pt is unsure and wants to speak w/her , SW will check back. ORIN Zendejas
[2023-09-23 12:22] LABS: Bedside Glucose 245 mg/dL (74-106)
--- NOTE | 2023-09-23 15:30 | CASEMGMT ---
TC to pt PCP office, spoke with Shona. She states pt next appt is January [address] Jasso. She did confirm that pt PCP did leave. The soonest appt is Dec.11 that the new PCP could see pt. Made Shona aware that pt is potentially dc'ing from the hospital very soon and that [facility] will not see pt if she does not have a PCP. She is aware pt dc plan is SNF vs Home with [facility]. Asked if the new PCP would be willing to sign for the [facility] and made aware of pt recent surgery. She states she will send the message to the physician, gave her RN CM direct number to return call. Will await an answer.
[2023-09-23] MEDS: metFORMIN (XR) 500 MG Tablet PO (17:15)
[2023-09-23] MEDS: glipiZIDE 5 MG Tablet 2.5 MG PO (17:20)
[2023-09-23 17:33] LABS: Bedside Glucose 133 mg/dL (74-106)
--- NOTE | 2023-09-23 18:45 | CASEMGMT ---
Social Work To patient's room today to check back on home versus short term SNF. present in room for discussion. Patient deferred to the on what the thought. reports thought would be okay to take patient home, if had a wheelchair, and could use this to help get patient up the 3 steps into the home. reports would be home most of the time. Explored with patient that from last therapy notes, patient is needing help with transfers. then indicated would like to see patient move around in room. Spoke with PT/OT regarding home versus SNF and in room to watch therapy session. Therapy to see patient next. Spoke with Rianna KENDRICK CM of discharge planning update. Per CM, lack of PCP could cause hindrance in setting up timely HHC. Presented back to patient's room. Patient in bedside chair, appearing sleepy, but intermittently participating in conversation with this typewriter mechanic. reported thought might be able to take patient home. Educated to need for a PCP to sign HHC orders, and that most physicians will not sign until patient establishes with the PCP. Updated that patient's PCP office has provided an appointment for 12.11.23, but looking into whether would sign orders in the meantime. Reviewed options: home with HHC order, though may not have a PCP to sign orders which would hinder HHC even starting versus short term SNF which would allow patient more time to work on strength, balance, and transfers in preparation for home going. After much discussion, patient and agreed to look at SNF, but if PCP comes through would want to go with HHC option. asked SW to look into SNFs in [place], rather than [facility] or [facility]. Patient agreed. Choices are as follows, and determined from [facility] list provided previously: 1 - [facility], 2- [facility], 3 - [facility], 4 - [facility]. did pull out a bag of home medications from patient's suitcase, as patient reports did see a new PCP at the PCP office, after patient's usual PCP (Dr. Spaulding) left. From prescription bottles, determined patient saw Gene Odell at same PCP office ([phone]). This typewriter mechanic left message for AROLDO Blanca CM, of this physician name. This typewriter mechanic also updating AROLDO Srivastava regarding home medications in patient's room. Sent referrals to all [place] SNFs via [facility]. Asked the [place] SNFs to standby. Plan: Working on short term SNF, though may transition to C. SW and CM are continuing to follow. -HANNAH Calderon
[2023-09-23] MEDS: 0.9% Saline Lock 10 ML Syringe IV (21:47)
[2023-09-23] MEDS: Atorvastatin Calcium 40 MG Tablet PO (21:49)
[2023-09-23] MEDS: Venlafaxine HCl 75 MG Tablet 150 MG PO (21:49)
[2023-09-24] VITALS (8 sets, daily range): BP systolic 132–141; BP diastolic 55–74; PULSE 59–66; RESP 16–20; TEMP 36.3–37.1; O2SAT 95–98
[2023-09-24 01:27] LABS: Bedside Glucose 184 mg/dL (74-106)
[2023-09-24] MEDS: Levothyroxine 50 MCG Tablet PO (06:26)
[2023-09-24] MEDS: Acetaminophen 500 MG Tablet 1000 MG PO ×3 (06:26→21:06)
[2023-09-24 06:49] LABS: Bedside Glucose 93 mg/dL (74-106)
[2023-09-24] MEDS: Budesonide Respules 0.5 MG/2 ML AMPUL.NEB. INHALATION ×2 (06:56→20:13)
--- NOTE | 2023-09-24 07:57 | PN.HOSP_ITS ---
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 Planning on going to SNF. Objective Data Objective Data Vital Signs: Vital Signs Temp Pulse Resp BP Pulse Ox O2 Del Method O2 Flow Rate 36.3 C L 66 16 141/70 H 95 Room Air 1 09/24/23 06:29 09/24/23 06:58 09/24/23 06:58 09/24/23 06:29 09/24/23 06:58 09/24/23 06:58 09/21/23 07:27 Oxygen Flow Rate (L/min) 1 Oxygen Delivery Method Room Air Weight: 98.8 kg Body Mass Index (BMI) 32.6 Intake & Output: Intake and Output for Last 24 Hours 09/22/23 09/23/23 09/24/23 23:59 23:59 23:59 Intake Total 550 / 550 300 / 300 120 / 120 Output Total 500 / 500 Balance 50 / 50 300 / 300 120 / 120 Lab / Micro Data 09/19/23 07:40 09/19/23 07:40 Labs: Laboratory Results - last 24 hr 09/23/23 11:51: POC Glucose 245 H 09/23/23 17:12: POC Glucose 133 H 09/23/23 21:46: POC Glucose 184 H 09/24/23 06:25: POC Glucose 93 Micro: Microbiology 09/17/23 18:44 Wound - Left Foot Gram Stain - Final 09/17/23 18:44 Wound - Left Foot Wound Culture - Final Escherichia coli Streptococcus dysgalactiae equ 09/17/23 18:44 Wound - Left Foot Anaerobic Culture - Final Anaerobic cocci 09/17/23 19:16 Blood Culture (Wb) - Right Hand Blood Culture - Final No growth in 5 days. 09/17/23 18:55 Blood Culture (Wb) - Left Hand Blood Culture - Final No growth in 5 days. Physical Exam Const alert and average body habitus Resp normal respiratory effort, no retractions, no use of accessory muscles and clear to auscultation bilaterally Cardio regular rate, regular rhythm, S1 normal heart sound and S2 normal heart sound GI normal to inspection, nondistended, normoactive bowel sounds, soft to palpation, non-tender and non-distended Extremity normal to inspection Neuro Sensorium / Orientation: awake and alert Assessment & Plan Assessment/Plan (1) Abscess of left foot: PLAN: Plan (1) Non-pressure chronic ulcer of other part of left foot with necrosis of bone: PLAN: Severe diabetic foot wound with SQ emphysema. Ulceration from head of 1st MTP, lateral 5th metatarsal and plantar midfoot to the level of the navicular bone. Plantar tissue profoundly compromised. Not amenable to partial amputation given high risk for failure, therefore BKA is planned. ESR >130, CRP 135. Consults to podiatry, ID and vascular surgery. Abx dc'd by ID on 09/20 post BKA. Left BKA on 09/18. (2) Diabetes mellitus with diabetic polyneuropathy: PLAN: uncontrolled a1c 6.9 Currently on SSI Resume glipizide and metformin. PLAN: Plan Chronic conditions: * Ongoing tobacco abuse adding to the pathology of #1 and #2 - Tobacco cessation will be strongly encouraged with nicotine patch offered to control cravings. * Positive family history of peripheral vascular disease in her mother who underwent a left lower extremity amputation as well - Noted. * Essential hypertension - Continue home medications as previous. Give IV hydralazine as needed for systolic blood pressure greater than 160 mmHg. * Hyperlipidemia - Continue statin as previous. DVT prophylaxis -Lovenox 40 mg subcu daily. Disposition: to SNF pending insurance authorization. Charges/Coding Visit Charges Inpatient E&M: 98340 Subs Hosp L1
[2023-09-24] MEDS: glipiZIDE 5 MG Tablet 2.5 MG PO ×2 (08:23→17:10)
[2023-09-24] MEDS: Venlafaxine HCl 75 MG Tablet PO (08:23)
[2023-09-24] MEDS: Aspirin E.C. 81 MG Tablet PO (08:23)
[2023-09-24] MEDS: metFORMIN (XR) 500 MG Tablet PO ×2 (08:24→17:11)
[2023-09-24] MEDS: Enoxaparin 40 MG/0.4 ML Syringe SC (10:12)
[2023-09-24] MEDS: Oxybutynin 5 MG Tablet PO (10:12)
[2023-09-24] MEDS: Metoprolol Tartrate 25 MG Tablet 75 MG PO ×2 (10:12→21:05)
[2023-09-24] MEDS: Losartan Potassium 100 MG Tablet PO (10:12)
[2023-09-24] MEDS: buPROPion (XL) 150 MG TABLET.XL PO (10:13)
[2023-09-24] MEDS: Gabapentin 600 MG Tablet PO ×2 (10:15→21:04)
--- NOTE | 2023-09-24 11:19 | CASEMGMT ---
Addendum entered by Rianna Abdi 09/24/23 14:13: Received tc from Cinthia at [facility] who states both physicians were out yesterday and today and she will call tomorrow regarding answer when the message is addressed. Original Note: Received notification from OLIVIA that pt has seen Dr.Mario Marco Antonio Odell in the [facility] office since her physician has left the practice. TC to [facility], spoke with Nichelle who states the message from yesterday regarding HHC and following physician has not been addressed. Requested that she add to the message to see if would follow for the homecare. She states that an answer should be obtained in 24-48 hours. She is aware that pt is medically ready for dc. Updated OLIVIA.
[2023-09-24] MEDS: Insulin Lispro 100 UNIT/ML INSULN.PEN SC (11:36)
--- NOTE | 2023-09-24 11:40 | CASEMGMT ---
Social Work SW met with pt and introduced self and role of SW. SW explained that PCP's office has not yet agreed to follow for home health care and are uncertain when they will have an answer. [facility], [facility] and [facility] are able to accept pt. [facility], [facility] and [facility] are not. Pt choosing to go to [facility]. SW requested [facility] start precert at this time. Plan: [facility], pending precert ANUSHKA Munoz
[2023-09-24 11:57] LABS: Bedside Glucose 177 mg/dL (74-106)
[2023-09-24 17:10] LABS: Bedside Glucose 113 mg/dL (74-106)
--- NOTE | 2023-09-24 17:16 | CASEMGMT ---
AROLDO BIANCHI received voicemail from Pt's PCP office from Jerilyn ([phone]) stating that pt's new PCP will follow pt. for [facility] but will need us to fax their office her records so that he can get her in for a sooner appointment than January 19. Records should be faxed to [phone]. AROLDO BIANCHI informed Rianna KENDRICK CM of this information.
[2023-09-24] MEDS: Venlafaxine HCl 75 MG Tablet 150 MG PO (21:05)
[2023-09-24] MEDS: Atorvastatin Calcium 40 MG Tablet PO (21:06)
[2023-09-24] MEDS: 0.9% Saline Lock 10 ML Syringe IV (21:10)
[2023-09-24 21:29] LABS: Bedside Glucose 120 mg/dL (74-106)
[2023-09-24] MEDS: oxyCODONE 5 MG Tablet PO (22:28)
[2023-09-25 06:33] VITALS: BP 117/51; PULSE 64; RESP 18; TEMP 36.5; O2SAT 96
[2023-09-25] MEDS: Acetaminophen 500 MG Tablet 1000 MG PO ×2 (06:36→13:34)
[2023-09-25] MEDS: Levothyroxine 50 MCG Tablet PO (06:36)
[2023-09-25] MEDS: glipiZIDE 5 MG Tablet 2.5 MG PO (06:36)
[2023-09-25 06:56] LABS: Bedside Glucose 110 mg/dL (74-106)
[2023-09-25] MEDS: Budesonide Respules 0.5 MG/2 ML AMPUL.NEB. INHALATION (07:42)
[2023-09-25 07:43] VITALS: PULSE 71; RESP 18; O2SAT 93
--- NOTE | 2023-09-25 08:31 | PN.HOSP_ITS ---
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 Objective Data Objective Data Vital Signs: Vital Signs Temp Pulse Resp BP Pulse Ox O2 Del Method O2 Flow Rate 36.5 C L 71 18 117/51 L 93 Nasal Cannula 2 09/25/23 06:33 09/25/23 07:43 09/25/23 07:43 09/25/23 06:33 09/25/23 07:43 09/25/23 07:43 09/25/23 07:43 Oxygen Flow Rate (L/min) 2 Oxygen Delivery Method Nasal Cannula Weight: 98.8 kg Body Mass Index (BMI) 32.6 Intake & Output: Intake and Output for Last 24 Hours 09/23/23 09/24/23 09/25/23 23:59 23:59 23:59 Intake Total 300 / 300 420 / 420 200 / 200 Balance 300 / 300 420 / 420 200 / 200 Lab / Micro Data 09/19/23 07:40 09/19/23 07:40 Labs: Laboratory Results - last 24 hr 09/24/23 11:34: POC Glucose 177 H 09/24/23 16:51: POC Glucose 113 H 09/24/23 21:03: POC Glucose 120 H 09/25/23 06:32: POC Glucose 110 H Micro: Microbiology 09/17/23 18:44 Wound - Left Foot Gram Stain - Final 09/17/23 18:44 Wound - Left Foot Wound Culture - Final Escherichia coli Streptococcus dysgalactiae equ 09/17/23 18:44 Wound - Left Foot Anaerobic Culture - Final Anaerobic cocci 09/17/23 19:16 Blood Culture (Wb) - Right Hand Blood Culture - Final No growth in 5 days. 09/17/23 18:55 Blood Culture (Wb) - Left Hand Blood Culture - Final No growth in 5 days. Physical Exam Const alert and no apparent distress Assessment & Plan Assessment/Plan (1) Abscess of left foot: PLAN: Plan (1) Non-pressure chronic ulcer of other part of left foot with necrosis of bone: PLAN: Severe diabetic foot wound with SQ emphysema. Ulceration from head of 1st MTP, lateral 5th metatarsal and plantar midfoot to the level of the navicular bone. Plantar tissue profoundly compromised. Not amenable to partial amputation given high risk for failure, therefore BKA is planned. ESR >130, CRP 135. Consults to podiatry, ID and vascular surgery. Abx dc'd by ID on 09/20 post BKA. Left BKA on 09/18. (2) Diabetes mellitus with diabetic polyneuropathy: PLAN: uncontrolled a1c 6.9 Currently on SSI Resume glipizide and metformin. PLAN: Plan Chronic conditions: * Ongoing tobacco abuse adding to the pathology of #1 and #2 - Tobacco cessation will be strongly encouraged with nicotine patch offered to control cravings. * Positive family history of peripheral vascular disease in her mother who underwent a left lower extremity amputation as well - Noted. * Essential hypertension - Continue home medications as previous. Give IV hydralazine as needed for systolic blood pressure greater than 160 mmHg. * Hyperlipidemia - Continue statin as previous. DVT prophylaxis -Lovenox 40 mg subcu daily. Disposition: plan for home with [facility].
[2023-09-25 08:39] VITALS: BP 125/62; PULSE 66; RESP 18; TEMP 36.4; O2SAT 97
[2023-09-25] MEDS: metFORMIN (XR) 500 MG Tablet PO (08:46)
[2023-09-25] MEDS: Losartan Potassium 100 MG Tablet PO (08:46)
[2023-09-25] MEDS: Aspirin E.C. 81 MG Tablet PO (08:46)
[2023-09-25] MEDS: Venlafaxine HCl 75 MG Tablet PO (08:46)
[2023-09-25] MEDS: Enoxaparin 40 MG/0.4 ML Syringe SC (08:47)
[2023-09-25] MEDS: buPROPion (XL) 150 MG TABLET.XL PO (08:47)
[2023-09-25] MEDS: Oxybutynin 5 MG Tablet PO (08:47)
[2023-09-25 08:49] VITALS: PULSE 66
[2023-09-25] MEDS: Metoprolol Tartrate 25 MG Tablet 75 MG PO (08:49)
[2023-09-25] MEDS: Gabapentin 600 MG Tablet PO (08:52)
--- NOTE | 2023-09-25 09:17 | WOUNDNOTE ---
MAHENDRA Victoria to assess the left stump today. will assist as needed.
--- NOTE | 2023-09-25 10:13 | CASEMGMT ---
Addendum entered by Rianna Abdi 09/25/23 15:13: TC to [facility], pt cost for annaquis was $42 and it was already picked up. Spoke with Hemant magallanes and w/c will be delivered to the room shortly. Addendum entered by Rianna Abdi 09/25/23 14:52: AROLDO BIANCHI into pt room, pt present, pt is aware that [facility] will be coming to her home on Saturday. Pt has a rx for BGM in her folder and she will obtain. Pt aware that a w/c has been requested to be delivered to the room prior to dc. Pt hips measured, marked for 20 in for w/c and rescanned to [facility]. Pt and deny any further needs at this time. AROLDO BIANCHI faxed Dr. Jasso's office consults, H&P, ER documentation, DC summary to [phone]. Addendum entered by Rianna Abdi 09/25/23 13:51: [facility] and ELR at this time via [facility]. Addendum entered by Rianna Abdi 09/25/23 13:41: Received tc back from Layla at [facility], they are able to accept pt for SOC on Saturday. Addendum entered by Rianna Abdi 09/25/23 12:40: 1100- AROLDO BIANCHI into pt room, pt has chose [facility] as first choice and did not provide other options. [id number] to [facility], spoke with Layla, referral made at this time. Will await acceptance. Original Note: AROLDO BIANCHI into pt room, pt sitting up in bed. Made pt aware that her new PCP is willing to cover the [facility] if she should decide to go home. Discussed that pt is needing 1-2 assist at home. Pt states her and grandson are available to assist her 03/06. She states she will need a w/c at home. Provided her with a local in network list of DME companies, pt denies preference. Pt states she needs to get a ramp put in. Pt has the [facility] list provided previously to her. Pt states she would like to speak to her regarding this and then make a decision. She is aware that the AROLDO BIANCHI will check back with her on decision.
--- NOTE | 2023-09-25 10:20 | PN.SURG_ITS ---
Subjective Subjective Patient was seen at bedside this morning. She was resting comfortably with no specific complaints. She reports that at night she gets some aching pain along her left dunn, she was experiencing this even prior to surgery but just seems more consistent since then. Otherwise, denies any significant phantom pain or other pain in her amputation stump. She denies any nausea, vomiting, fevers, chills. She reports doing well with therapy. She is considering discharge to a SNF versus home with home health care. She is tolerating the stump protector well, but is not really able to tolerate the compression sleeve that goes with it yet so using an Winston wrap instead. Objective Data Objective Data Vital Signs: Vital Signs Temp Pulse Resp BP Pulse Ox O2 Del Method O2 Flow Rate 97.5 F L 66 18 125/62 H 97 Room Air 2 09/25/23 08:39 09/25/23 08:49 09/25/23 08:39 09/25/23 08:39 09/25/23 08:39 09/25/23 08:42 09/25/23 07:43 Oxygen Flow Rate (L/min) 2 Oxygen Delivery Method Room Air Weight: 217 lb 13.067 oz Body Mass Index (BMI) 32.6 Intake & Output: Intake and Output for Last 24 Hours 09/23/23 09/24/23 09/25/23 23:59 23:59 23:59 Intake Total 300 / 300 420 / 420 200 / 200 Balance 300 / 300 420 / 420 200 / 200 Lab / Micro Data 09/19/23 07:40 09/19/23 07:40 Labs: Laboratory Results - last 24 hr 09/24/23 11:34: POC Glucose 177 H 09/24/23 16:51: POC Glucose 113 H 09/24/23 21:03: POC Glucose 120 H 09/25/23 06:32: POC Glucose 110 H Micro: Microbiology 09/17/23 18:44 Wound - Left Foot Gram Stain - Final 09/17/23 18:44 Wound - Left Foot Wound Culture - Final Escherichia coli Streptococcus dysgalactiae equ 09/17/23 18:44 Wound - Left Foot Anaerobic Culture - Final Anaerobic cocci 09/17/23 19:16 Blood Culture (Wb) - Right Hand Blood Culture - Final No growth in 5 days. 09/17/23 18:55 Blood Culture (Wb) - Left Hand Blood Culture - Final No growth in 5 days. Physical Exam Const alert, oriented x3 and no apparent distress General Appearance: cooperative HEENT normocephalic, head/scalp atraumatic, hearing grossly normal bilaterally, external ears normal and external nose normal Throat: hoarseness Eyes EOMs intact bilaterally General Eye: normal appearance of both eyes Neck General: normal visual inspection and trachea midline Resp normal respiratory effort Cardio regular rate and regular rhythm Extremity Extremity Narrative: L BKA incision site is well-approximated with sutures intact and skin edges viable. There is no dehiscence, erythema, excess warmth, focal swelling, foul odor. Amputation stump is soft to palpation with no evidence of hematoma, focal swelling, excessive tenderness. Knee range of motion is intact. Neuro oriented x3, CN's II-XII intact bilaterally, moves all extremities and no focal motor deficits Speech: speech normal Psych mental status grossly normal Appearance: grossly normal Attitude: calm Activity / Motor Behavior: appropriate eye contact Speech: normal speech Judgement: judgement good Assessment & Plan Assessment/Plan (1) Non-pressure chronic ulcer of other part of left foot with necrosis of bone: (2) Cellulitis of left foot: (3) Diabetes mellitus with diabetic polyneuropathy: QUALIFIERS: Diabetes mellitus long term care phlebotomist insulin use: without long term care phlebotomist use Diabetes mellitus type: type 2 Qualified Code(s): E11.42 - Type 2 diabetes mellitus with diabetic polyneuropathy PLAN: Plan Ms. Duvall is POD#7 s/p L BKA. I did perform a dressing change this morning. The incision site has sutures intact with no evidence of dehiscence, ischemia, or infection. The incision site and stump is overall satisfactory in appearance . We will continue with current wound care of Adaptic to the suture line followed by Kerlix wrap and dressings changed daily or more often as needed to keep clean and dry. For now, may continue to use Winston wrap for compression and then ultimately can use the sleeve/stocking again with the protector once tolerable. Okay to wash the amputation stump and incision site with soap and water, pat to dry. Do not submerge the incision site in water such as to take a bath. Discharge planning as per primary team, patient deciding between SNF and home with home health care. Plan is for outpatient follow-up in vascular office in 2 to 3 weeks in office for initial suture removal.
[2023-09-25] MEDS: Insulin Lispro 100 UNIT/ML INSULN.PEN SC (11:41)
[2023-09-25 12:05] LABS: Bedside Glucose 183 mg/dL (74-106)
--- NOTE | 2023-09-25 14:06 | DS.PCM_ITS ---
Providers Date of Admission: 09/17/23 Primary Care Physician: Domitila Primary Care Phys Consultations 09/17/23 20:10 Consult: Onc/Wound/site interpreter Routine Comment: Reason for Consult:: LEft DFU with Gangrene. Comments:: Please see in the AM on rounds. Plans for Left BKA. 09/17/23 20:12 Consult: Infectious Disease Routine Consulting Provider: Juan Manuel Nathan Reason for Consult: Left DFU with Gangrene. 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 EMERGENT Consult: No MD Notified: Yes Date Notified: 09/18/23 Time Notified: 07:58 Method of Notification: Text Reason For Visit: DFU WITH GANGRENE Diagnosis Discharge Diagnosis (1) Abscess of left foot: Status: Acute Code(s): L02.612 - Cutaneous abscess of left foot Plan (1) Non-pressure chronic ulcer of other part of left foot with necrosis of bone: PLAN: Severe diabetic foot wound with SQ emphysema. Ulceration from head of 1st MTP, lateral 5th metatarsal and plantar midfoot to the level of the navicular b one. Plantar tissue profoundly compromised. Not amenable to partial amputation given high risk for failure, therefore BKA is planned. ESR >130, CRP 135. Consults to podiatry, ID and vascular surgery. Abx dc'd by ID on 09/20 post BKA. Left BKA on 09/18. Follow up with vascular surgery. (2) Diabetes mellitus with diabetic polyneuropathy: PLAN: uncontrolled a1c 6.9 Currently on SSI Resume glipizide and metformin. PLAN: Plan Chronic conditions: * Ongoing tobacco abuse adding to the pathology of #1 and #2 - Tobacco cessation will be strongly encouraged with nicotine patch offered to control cravings. * Positive family history of peripheral vascular disease in her mother who underwent a left lower extremity amputation as well - Noted. * Essential hypertension - Continue home medications as previous. Give IV hydralazine as needed for systolic blood pressure greater than 160 mmHg. * Hyperlipidemia - Continue statin as previous. Disposition: plan for home with [facility]. Medications at Discharge Home Medications albuterol sulfate 90 mcg/actuation aerosol inhaler 2 puff inhalation Q4H PRN WHEEZING/SOB 09/17/23 aspirin 81 mg tablet,delayed release 81 mg PO DAILY HEART HEALTH 09/17/23 atorvastatin 40 mg tablet 40 mg PO DAILY CHOLESTEROL 09/17/23 bupropion HCl 150 mg 24 hr tablet, extended release 150 mg PO DAILY DEPRESSION 09/17/23 fluticasone propionate 110 mcg/actuation HFA aerosol inhaler 1 puff inhalation BID ASTHMA 09/17/23 gabapentin 600 mg tablet 600 mg PO BID NEUROPATHY 09/17/23 levothyroxine 50 mcg tablet (Synthroid) 50 mcg PO DAILY THYROID 09/17/23 losartan 100 mg tablet 100 mg PO DAILY BLOOD PRESSURE 09/17/23 metformin 500 mg tablet,extended release 24 hr 500 mg PO BIDCM DIABETES 09/17/23 metoprolol tartrate 75 mg tablet 75 mg PO BID BLOOD PRESSURE 09/17/23 oxybutynin chloride 5 mg tablet 5 mg PO DAILY OVERACTIVE BLADDER 09/17/23 venlafaxine 75 mg tablet 75 mg PO BREAKFAST DEPRESSION 09/17/23 venlafaxine 75 mg tablet 150 mg PO QPM DEPRESSION 09/17/23 acetaminophen 500 mg tablet 1,000 mg (2 x 500 mg) PO Q8 PRN #0 tabs 09/21/23 apixaban 2.5 mg tablet (Eliquis) 2.5 mg PO BID #60 tabs 09/21/23 glipizide 2.5 mg tablet 2.5 mg PO BID #60 tabs 09/21/23 oxycodone 5 mg tablet 2.5 - 5 mg (0.5 - 1 x 5 mg) PO Q4H PRN PRN Pain Score 4-10 5 days #10 tabs 09/21/23 Weight / BMI Weight Weight: 98.8 kg Body Mass Index (BMI) 32.6 ABG / Lab / Microbiology Data 09/19/23 07:40 09/19/23 07:40 Laboratory: Laboratory Results - last 24 hr 09/24/23 16:51: POC Glucose 113 H 09/24/23 21:03: POC Glucose 120 H 09/25/23 06:32: POC Glucose 110 H 09/25/23 11:40: POC Glucose 183 H Microbiology: Microbiology 09/17/23 18:44 Wound - Left Foot Gram Stain - Final 09/17/23 18:44 Wound - Left Foot Wound Culture - Final Escherichia coli Streptococcus dysgalactiae equ 09/17/23 18:44 Wound - Left Foot Anaerobic Culture - Final Anaerobic cocci 09/17/23 19:16 Blood Culture (Wb) - Right Hand Blood Culture - Final No growth in 5 days. 09/17/23 18:55 Blood Culture (Wb) - Left Hand Blood Culture - Final No growth in 5 days. D/C Instructions Discharge Diet: 2000 Calorie Control Diet Meaningful Use Info Meaningful Use Diagnoses (Choose all that apply): None applicable Discharge Plan Admission Admit Date/Time: 09/17/23 21:02 Primary Reason for Your Visit: Left diabetic foot status post BKA Attending Provider: Neptali Recinos Primary Care Provider: Care Physician,Domitila Primary Consulting Providers: Mingo Reddy; Juan Manuel Nathan; Neptali Hernandez; Neptali Recinos; Angel Pichardo Discharge Orders/Prescriptions Prescriptions: New acetaminophen 500 mg Tablet 1,000 mg PO Q8 PRNQty: 0 0RF Rx Instructions: For mild to moderate pain. oxycodone 5 mg Tablet 2.5 - 5 mg PO Q4H PRN PRN (Reason: Pain Score 4-10) 5 Days Qty: 10 0RF Rx Instructions: 2.5 mg for moderate pain 5 mg for severe pain respectively. Eliquis 2.5 mg tablet 2.5 mg PO BID Qty: 60 0RF Rx Instructions: For DVT prophylaxis. glipizide 2.5 mg tablet 2.5 mg PO BID Qty: 60 2RF Rx Instructions: Hold if glucose less than 130 mg/dl Continued atorvastatin 40 mg tablet 40 mg PO DAILY bupropion HCl 150 mg tablet extended release 24 hr 150 mg PO DAILY gabapentin 600 mg tablet 600 mg PO BID venlafaxine 75 mg tablet 75 mg PO BREAKFAST Rx Instructions: TAKE ONE TABLET (75MG) BY MOUTH ONCE DAILY IN THE MORNING AND TAKE TWO TABLETS (150MG) ONCE EVERY EVENING FOR A TOTAL DAILY DOSE OF 225MG. oxybutynin chloride 5 mg tablet 5 mg PO DAILY losartan 100 mg tablet 100 mg PO DAILY metformin 500 mg tablet extended release 24 hr 500 mg PO BIDCM fluticasone propionate 110 mcg/actuation HFA aerosol inhaler 1 puff INHALATION BID metoprolol tartrate 75 mg tablet 75 mg PO BID venlafaxine 75 mg tablet 150 mg PO QPM Rx Instructions: TAKE ONE TABLET (75MG) BY MOUTH ONCE DAILY IN THE MORNING AND TAKE TWO TABLETS (150MG) ONCE EVERY EVENING FOR A TOTAL DAILY DOSE OF 225MG. levothyroxine [Synthroid] 50 mcg tablet 50 mcg PO DAILY albuterol sulfate 90 mcg/actuation HFA aerosol inhaler 2 puff INHALATION Q4H PRN (Reason: WHEEZING/SOB) Patient Comments: INHALE 2 PUFFS EVERY 4 HOURS NEEDED FOR WHEEZING or SHORTNESS OF BREATH Held aspirin 81 mg tablet,delayed release (DR/EC) 81 mg PO DAILY Hold Instructions: Hold it while taking Eliquis. Referrals / Follow Up: Neptali Hernandez MD [Med Staff - Active Staff] - Within 1 Month (for PAD) Doug Hager DPM [Med Staff - Active Staff] - Within 1 Week (Follow-up for left BKA stump. Follow-up in wound clinic.) Care Physician,No Primary [Primary Care Provider] - Within 2 Weeks (For optimal control of diabetes mellitus and blood pressure) NOT,DEFINED [Non-Staff] - Disposition Disposition (needs filled in before D/C Order can be placed): Home Health Service Charges/Coding Visit Charges Inpatient E&M: 33933 Disch Hosp
--- NOTE | 2023-09-25 14:27 | CASEMGMT ---
Social Work Pt now choosing to return home. SW updated [facility] and referral cancelled. ANUSHKA Munoz
[2023-09-25 14:34] VITALS: BP 112/60; PULSE 59; RESP 18; TEMP 36.6; O2SAT 97
--- NOTE | 2023-09-25 18:14 | PHA.DC.MC.R ---
Pharmacy [facility] has performed discharge medication reconciliation and counseling for this patient. The patient's discharge medication list was reviewed for discrepancies and discrepancies were resolved. The patient was counseled on the following discharge medications and changes in medications for homegoing were reviewed. 1. TYLENOL 2. ELIQUIS 3. GLIPIZIDE 4. OXYCODONE The Reason for Use, instructions for use, and potential side effects were reviewed for all new medications. The patient's questions regarding all of their medications were answered. The patient was able to verbally demonstrate an understanding of their discharge medications. Medications at Discharge Home Medications albuterol sulfate 90 mcg/actuation aerosol inhaler 2 puff inhalation Q4H PRN WHEEZING/SOB 09/17/23 aspirin 81 mg tablet,delayed release 81 mg PO DAILY HEART HEALTH 09/17/23 atorvastatin 40 mg tablet 40 mg PO DAILY CHOLESTEROL 09/17/23 bupropion HCl 150 mg 24 hr tablet, extended release 150 mg PO DAILY DEPRESSION 09/17/23 fluticasone propionate 110 mcg/actuation HFA aerosol inhaler 1 puff inhalation BID ASTHMA 09/17/23 gabapentin 600 mg tablet 600 mg PO BID NEUROPATHY 09/17/23 levothyroxine 50 mcg tablet (Synthroid) 50 mcg PO DAILY THYROID 09/17/23 losartan 100 mg tablet 100 mg PO DAILY BLOOD PRESSURE 09/17/23 metformin 500 mg tablet,extended release 24 hr 500 mg PO BIDCM DIABETES 09/17/23 metoprolol tartrate 75 mg tablet 75 mg PO BID BLOOD PRESSURE 09/17/23 oxybutynin chloride 5 mg tablet 5 mg PO DAILY OVERACTIVE BLADDER 09/17/23 venlafaxine 75 mg tablet 75 mg PO BREAKFAST DEPRESSION 09/17/23 venlafaxine 75 mg tablet 150 mg PO QPM DEPRESSION 09/17/23 acetaminophen 500 mg tablet 1,000 mg (2 x 500 mg) PO Q8 PRN #0 tabs 09/21/23 apixaban 2.5 mg tablet (Eliquis) 2.5 mg PO BID #60 tabs 09/21/23 glipizide 2.5 mg tablet 2.5 mg PO BID #60 tabs 09/21/23 oxycodone 5 mg tablet 2.5 - 5 mg (0.5 - 1 x 5 mg) PO Q4H PRN PRN Pain Score 4-10 5 days #10 tabs 09/21/23
== END 2023-09-25 16:26 | disposition home health service (06) | DRG 240 ==
LOC: ED 19:42 → MS3 21:06
PROVIDERS: Anesthesiology; Internal Medicine; Internal Medicine Infectious Disease; Surgery Trauma Surgery; Admitting Provider Internal Medicine; Emergency Provider Student in an Organized Health Care Education/Training Program
PROC: 0Y6J0Z2 Detachment at Left Lower Leg, Mid, Open Approach (ICD-10-PCS; principal; 2023-09-18 14:15)
DX: E11.52 Type 2 diabetes mellitus with diabetic peripheral angiopathy with gangrene (principal); L03.116 Cellulitis of left lower limb; L02.612 Cutaneous abscess of left foot; E11.42 Type 2 diabetes mellitus with diabetic polyneuropathy; L97.524 Non-pressure chronic ulcer of other part of left foot with necrosis of bone; B95.5 Unspecified streptococcus as the cause of diseases classified elsewhere; E11.621 Type 2 diabetes mellitus with foot ulcer; E11.65 Type 2 diabetes mellitus with hyperglycemia; I10 Essential (primary) hypertension; F32.A Depression, unspecified; F17.210 Nicotine dependence, cigarettes, uncomplicated; E87.6 Hypokalemia; E78.00 Pure hypercholesterolemia, unspecified; M77.30 Calcaneal spur, unspecified foot; J04.0 Acute laryngitis; E66.9 Obesity, unspecified; Z79.82 Long term (current) use of aspirin; Z79.84 Long term (current) use of oral hypoglycemic drugs; Z23 Encounter for immunization; Z79.899 Other long term (current) drug therapy; Z68.36 Body mass index [BMI] 36.0-36.9, adult; B96.20 Unspecified Escherichia coli [E. coli] as the cause of diseases classified elsewhere
CPT/HCPCS: 36415; 73630; 73718; 73721; 80048; 80202; 82962; 83036; 83605; 84443; 85025; 85610; 85652; 86140; 86850; 86900; 86901; 86920; 86922; 87040; 87070; 87075; 87077; 87186; 87205; 88311; 93005; 93923; 94640; 94668; 97110; 97116; 97162; 97166; 97530; 97535; 99252; 99285; 99406; A4648; J7030; J7040; J7050; 90686; A4216; G0463; J2405